=== PATIENT | male | born 1940 | race Caucasian/White ===

== ENCOUNTER 2018-10-23 05:10 | Observation (INO) | payer MEDICARE, BC ==
[2018-10-23 06:13] LABS: Anion Gap 11 mmol/L (10-20); BUN (Urea Nitrogen) 18 mg/dL (8.4-25.7); Calc. Creatinine Clearance 0 mL/min (70-130); Carbon Dioxide 23 mmol/L (23-31); Chloride 109 mmol/L (98-107); Estimated GFR-MDRD 57; Glucose 138 mg/dL (83-110); Potassium 4.2 mmol/L (3.5-5.1); Sodium 139 mmol/L (136-145)
[2018-10-23 06:20] LABS: Bilirubin Negative (Negative); Blood, Urine Large (Negative); Glucose, Urine (Dipstick) Negative (Negative); Leukocyte Trace (Negative); Nitrite Positive (Negative); pH, Urine 6.5 (5.0-9.0)
[2018-10-23 06:26] LABS: Clarity Turbid (Clear)
[2018-10-23 06:35] LABS: Specific Gravity, Urine 1.022 (1.002-1.036)
[2018-10-23 06:37] LABS: Bacteria/HPF 1+ HPF (None Seen); Hyaline Casts/LPF NONE SEEN LPF (0-3 Hyaline); RBC/HPF GREATER THAN 50-TNTC HPF (0-3); Squamous Epithelial 0-3 HPF (0-3)
[2018-10-23 10:36] LABS: #Basophils 0.1 thou/uL (0.0-0.2); #Eosinphils 0.3 thou/uL (0.0-0.7); #Lymphocytes 2.7 thou/uL (1.20-3.40); #Monocytes 0.7 thou/uL (0.11-0.59); #Neutrophils 5.4 thou/uL (1.40-6.50); %Basophils 0.9 % (0.0-1.0); %Eosinophils 3.5 % (0.0-10.0); %Lymphocytes 29.3 % (21.0-51.0); %Monocytes 7.7 % (0.0-10.0); %Neutrophils 58.6 % (42.0-75.0); Hemoglobin 13.6 g/dL (14.0-18.0); Mean Corpuscular HGB CONC 33.8 g/dL (32.0-36.0); Mean Corpuscular Volume 91.5 fL (78.0-98.0); Mean Platelet Volume 8.1 fL (7.4-10.4); Platelet Count 222 thou/uL (130-400); RBC Distribution Width 12.1 % (11.5-14.5); Red Blood Cell (RBC) Count 4.41 mill/uL (4.70-6.10); White Blood Cell (WBC) Count 9.3 thou/uL (4.8-10.8)
[2018-10-23] MEDS ORDERED: Zolpidem Tartrate 5 MG TAB PO PRN (10:45)
[2018-10-23] MEDS ORDERED: Bisacodyl 10 MG SUPP PR PRN (10:45)
[2018-10-23] MEDS ORDERED: Cepastat Lozenges 1 LOZ PO PRN (10:45)
[2018-10-23] MEDS ORDERED: Diabetic Tussin 200 MG/10 ML UDCUP PO PRN (10:45)
[2018-10-23] MEDS ORDERED: Acetaminophen 325 MG TAB PO PRN (10:45)
[2018-10-23] MEDS ORDERED: Loratadine 10 MG TAB PO PRN (10:45)
[2018-10-23] MEDS ORDERED: Artificial Tears 18 DROP/0.9 ML EA EYE PRN (10:45)
[2018-10-23] MEDS ORDERED: Bisacodyl 5 MG TAB PO PRN (10:45)
[2018-10-23] MEDS ORDERED: Senokot S 8.6-50 MG TAB PO PRN (10:45)
[2018-10-23] MEDS ORDERED: Dextrose 50% Abboject 50 ML SYRINGE SLOW IVP PRN (10:45)
[2018-10-23] MEDS ORDERED: Loperamide HCl 2 MG CAP PO PRN (10:45)
[2018-10-23] MEDS ORDERED: Ondansetron ODT 4 MG TAB PO PRN (10:45)
[2018-10-23] MEDS ORDERED: HumaLOG 300 UNITS/3 ML VIAL SC PRN ×2 (10:45)
[2018-10-23] MEDS ORDERED: Dextrose 5% in Water 1,000 ML IV PRN (10:45)
[2018-10-23] MEDS ORDERED: Sodium Chloride 0.65% Nasal 44 ML BOT EA NARE PRN (10:45)
[2018-10-23] MEDS ORDERED: cefTRIAXone\\ROCEPHIN 1 GM in Sodium Chloride 0.9% 100 ML IVPB SCH (10:45)
[2018-10-23] MEDS ORDERED: Eucerin (Mineral Oil/Petrolatum,White) 30 gm Jar TOP PRN (10:45)
[2018-10-23] MEDS ORDERED: Nitroglycerin 0.4 MG TAB (25 Tab Bottle) SL PRN (10:45)
[2018-10-23] MEDS ORDERED: HYDROcodone/Acetaminophen 5/325 mg Tablet PO PRN (10:45)
[2018-10-23] MEDS ORDERED: Ondansetron PF 4 MG/2 ML Vial IVP PRN (10:45)
[2018-10-23] MEDS ORDERED: Calcium Carbonate 500 MG ChewTAB PO PRN (10:45)
[2018-10-23 10:57] VITALS: BMI 31.1
--- NOTE | 2018-10-23 11:12 | HP ---
PRIMARY CARE PHYSICIAN: Amilcar Cano MD REASON FOR ADMISSION: Gross hematuria. HISTORY OF PRESENT ILLNESS: A 78-year-old male who has remote history of benign enlargement of prostate. He had some TURP done by Dr. Mendez 14 years ago. Since then, he had no problem. He presented to [facility] for gross hematuria, which started yesterday along with clots in the urine. He did not have any retention. He was having grossly bloody urine, which was painless. He was feeling cramps in his suprapubic area. He had Martinez catheter placed at [facility], which was draining gross blood. Subsequently, this patient was transferred to our hospital for higher level of care. Urology was consulted in the emergency room. Urology already saw this patient and they are planning to do cystoscopy later on today. He is getting bladder irrigation. He still has gross hematuria. The patient denies any chest pain or palpitation. He denies any smoking. He denies any previous history of hesitancy, frequency, retention, or hematuria. He denies any weight loss. He does have chronic low back pain. He denies any fever or chills. He denies any cough, chest pain, palpitation, or shortness of breath. PAST MEDICAL HISTORY: Coronary artery disease, required CABG; benign enlargement of prostate, required TURP; hypertension; and diabetes type 2. PAST SURGICAL HISTORY: CABG x3, right shoulder surgery, TURP, tonsillectomy, and lumbar laminectomy. PAST PSYCHIATRIC HISTORY: Reviewed and negative. SOCIAL HISTORY: The patient is a former smoker. He quit smoking more than 10 years ago. He denies any alcohol or other illicit drug abuse. FAMILY HISTORY: No strong family history of premature coronary artery disease, stroke, or cancer. ALLERGIES: NO KNOWN DRUG ALLERGIES. CURRENT HOME MEDICATIONS: Aspirin 81 mg p.o. daily and lisinopril 20 mg twice daily. EMERGENCY ROOM COURSE: Reviewed. REVIEW OF SYSTEMS: CONSTITUTIONAL: Negative for weight loss or gain, ability to conduct usual activities. SKIN: Negative for rash, itching. EYES: Negative for double vision, pain. ENT/MOUTH: Negative for nose bleeding, neck stiffness, pain, tenderness. CARDIOVASCULAR: Negative for palpitations, dyspnea on exertion, orthopnea. RESPIRATORY: Negative for shortness of breath, wheezing, cough, hemoptysis, fever or night sweats. GASTROINTESTINAL: Negative for poor appetite, abdominal pain, heartburn, nausea, vomiting, constipation, or diarrhea. GENITOURINARY: Negative for urgency, frequency, dysuria, nocturia. MUSCULOSKELETAL: Negative for pain, swelling. NEUROLOGIC/PSYCHIATRIC: Negative for anxiety, depression. ALLERGY/IMMUNOLOGIC: Negative for skin rash, bleeding tendency. See my HPI for pertinent positives and negatives. All other review of systems reviewed and negative except as mentioned in HPI. PHYSICAL EXAMINATION: VITAL SIGNS: Currently; temperature 97.7, pulse 74, blood pressure 173/60, respiratory rate 16, and saturation 98% on room air. Weight 91.6 kg. GENERAL: The patient is currently alert and oriented x3. No acute distress. HEENT: Head, normocephalic and atraumatic. Eyes, pupils are round and reactive to light. Extraocular muscle intact. ENT, oropharynx within normal limits. Moist mucous membrane. No oral lesion. No pharyngeal erythema. No exudate. NECK: Supple. No JVD. No thyromegaly. No carotid bruit. No jugular venous distention. LUNGS: Clear to auscultation without any rhonchi or rales. CARDIAC: S1 and S2 regular. No murmur. No gallop. No rub. ABDOMEN: Soft. Bowel sounds present. Nontender. Mild suprapubic discomfort noted. No peritoneal sign. No guarding. No rigidity. No rebound. BACK: Unremarkable. No CVA tenderness. No point tenderness. EXTREMITIES: Upper extremities; passive movement of all joints is normal. Lower extremity, no edema. Good distal pulsation. SKIN: No skin rash. HEMATOLOGICAL SYSTEM: No lymphadenopathy. NEUROLOGIC: Nonfocal examination. SIGNIFICANT LABORATORY DATA: CBC; WBC 7.8, hemoglobin 13.4, and platelet 199. INR 1.0. BMP; sodium 141, potassium 3.9, chloride 110, carbon dioxide 23, BUN 16, creatinine 1.24, glucose 165, and calcium 8.7. LFT; AST 12, ALT 11, alkaline phosphatase 64, and albumin 4.0. Urinalysis consistent with gross hematuria, nitrite positive. ASSESSMENT AND PLAN: Impression: 1. Gross hematuria. Differential diagnosis is bladder tumor/cystitis/urinary tract infection/prostate pathology. At this point, based on acute painless gross massive hematuria, suspected for a bladder tumor. Urology already saw this patient and has planned for cystoscopy. We will continue continuous bladder irrigation. We will start empiric Rocephin 1 g q.24 hours. We will send urine culture. We will monitor H and H now and again tomorrow. Currently, the patient is hemodynamically stable. I spoke with Dr. Amaya. 2. History of benign enlargement of prostate. We will start Flomax 0.4 mg p.o. daily. 3. Hypertension. We will continue lisinopril 20 mg p.o. b.i.d. as per home dosage. 4. Diabetes type 2. Currently, the patient is not on any specific medication. We will continue with insulin as per sliding scale per protocol. We will check hemoglobin A1c tomorrow. 5. Coronary artery disease with history of coronary artery bypass grafting. We will hold on aspirin therapy because of gross hematuria. We will continue Toprol-XL 25 mg p.o. daily as per his previous home medicine. 6. Deep venous thrombosis prophylaxis, not needed, because we are expecting discharge in 24 to 48 hours. 7. Gastrointestinal prophylaxis. Pepcid 20 mg p.o. b.i.d. CODE STATUS: The patient is full code. The patient does not have any surrogate decision maker. DISPOSITION PLAN: Discussed with the patient in detail. Job ID: [id number]
[2018-10-23] MEDS ORDERED: cefTRIAXone\\ROCEPHIN 1 GM VIAL ONE (11:18)
[2018-10-23] MEDS ORDERED: Sodium Chloride 0.9% 100 ML ONE (11:18)
[2018-10-23] MEDS ORDERED: Ondansetron PF 4 MG/2 ML Vial ONE (12:35)
[2018-10-23] MEDS ORDERED: Metoclopramide HCl 10 MG/2 ML VIAL ONE (12:35)
[2018-10-23] MEDS ORDERED: PROPOFOL 200 MG/20 ML VIAL ONE (12:35)
[2018-10-23] MEDS ORDERED: PHENYLEPHRINE-NS 100 MCG/ML 10 ML SYRINGE ONE (12:35)
[2018-10-23] MEDS ORDERED: Lidocaine 1% PF 5 ML VIAL ONE (12:35)
[2018-10-23] MEDS ORDERED: Iothalamate Meglumine 60% 50 ML VIAL FS ONE (13:01)
[2018-10-23] MEDS ORDERED: Fentanyl 100 MCG/2 ML VIAL ONE ×2 (13:03→13:05)
[2018-10-23] MEDS ORDERED: PACU-Morphine 4MG/ML VIAL SLOW IVP PRN (13:50)
[2018-10-23] MEDS ORDERED: Meperidine HCl/PF 25 MG/ML VIAL SLOW IVP PRN (13:50)
[2018-10-23] MEDS ORDERED: Promethazine HCl 25 MG/ML VIAL IM PRN ×2 (13:50→14:23)
[2018-10-23] MEDS ORDERED: Promethazine HCl 25 MG/ML VIAL SLOW IVP PRN ×2 (13:50→14:23)
[2018-10-23] MEDS ORDERED: Ondansetron HCl/PF 4 MG/2 ML Vial IVP PRN (14:23)
[2018-10-23] MEDS: Sodium Chloride 0.9% 1,000 ML IV SCH ×2 (15:26→20:12)
--- NOTE | 2018-10-23 16:50 | CON ---
DATE OF CONSULTATION: 10/23/2018 CHIEF COMPLAINT: Gross hematuria, clot retention. HISTORY: Mr. Diez is a 78-year-old gentleman, whose prior urologic history includes TURP over [address] Mendez. He developed gross hematuria yesterday. By the evening, he was concerned he would not be able to urinate, so he presented to [facility]. A Martinez catheter had been placed and bloody urine was drained. He was then transferred to [facility] in [place]. Hand irrigation in the emergency room was performed, but cannot be deemed clot-free. The patient has no prior urologic history other than TURP. He does state that his baseline voiding symptoms include some urinary frequency and occasional feeling of incomplete bladder emptying, but it is not particularly bothered by these changes. He does not take any urologic medication. PAST MEDICAL HISTORY: Coronary artery disease, hypertension, and [id number] diabetes. CURRENT MEDICATIONS: 1. Aspirin 81 mg once a day. 2. Lisinopril 10 mg one p.o. b.i.d. ALLERGIES: NO KNOWN DRUG ALLERGIES. PAST SURGICAL HISTORY: TURP and coronary artery bypass graft. REVIEW OF SYSTEMS: RESPIRATORY: No shortness of breath. CARDIOVASCULAR: No chest pain or palpitation. GASTROINTESTINAL: No chronic constipation or diarrhea. GENITOURINARY: Please see history of present illness. NEUROLOGIC: No signs or symptoms or stroke. PHYSICAL EXAMINATION: GENERAL: Awake and alert. He is in no distress. Appears younger than stated age. VITAL SIGNS: Temperature 98.6, blood pressure 138/82, pulse 82, and respiratory rate 16. HEENT: Normocephalic and atraumatic. NECK: Supple. No masses. CHEST: Clear to auscultation. CARDIOVASCULAR: Regular rate and rhythm. ABDOMEN: Soft and nontender. No palpable masses. Liver and spleen, not palpable. No abdominal tenderness noted. : Penis circumcised. Urethral meatus appears normal. Scrotum, no lesions. Martinez catheter is placed and hand irrigated. Clots were obtained, but it could not be deemed a clot-free. IMPRESSION: Gross hematuria of unclear etiology. He will need cystoscopic evaluation to deem him clot-free. Evaluation at that time will also be performed to rule out bladder tumor. He will eventually need upper urinary tract imaging to assess the upper urinary tract for source of bleeding. PLAN: Cystoscopy, clot evacuation, and possible TURBT. Job ID: [id number]
--- NOTE | 2018-10-23 20:03 | OP ---
DATE OF PROCEDURE: 10/23/2018 PREOPERATIVE DIAGNOSES: Gross hematuria, clot retention. POSTOPERATIVE DIAGNOSES: Gross hematuria, clot retention. PROCEDURES PERFORMED: Cystoscopy, clot evacuation, and fulguration of prostate. ANESTHESIA: General. INDICATIONS: Mr. Diez is a 78-year-old gentleman with a history of TURP over 10 years ago. He developed urinary retention from blood clots today. The catheter could not be sufficiently cleared of clot by hand irrigation. He was brought to the operating room for further management. DESCRIPTION OF PROCEDURE: The patient was given general anesthesia and IV antibiotics. He was sterilely prepped and draped in the lithotomy position. A cystoscope was passed into the bladder and bladder examined in its entirety. There were no obvious tumors noted in the bladder. The right ureteral orifice appeared normal. Left ureteral orifice could never really be seen clearly. Efflux in the right ureteral orifice was also normal. There was some bleeding from the prostatic fossa. These areas were fulgurated. At the termination of the surgery, there was no active bleeding noted. 3-way Martinez catheter was placed and continuous bladder irrigation was initiated in the operating room. When we left the operating room, the urine was clear. PLAN: 1. Evaluation of upper urinary tract/CT scan. 2. Continuous bladder irrigation today. 3. Discontinue continuous bladder irrigation when urine clear off irrigation. Job ID: [id number]
[2018-10-23] MEDS: Famotidine 20 MG TAB PO SCH (20:05)
[2018-10-23] MEDS: Lisinopril 20 MG TAB PO SCH (20:05)
[2018-10-23] MEDS: hydrALAZINE 20 MG/ML VIAL SLOW IVP PRN (23:20)
[2018-10-24 04:46] LABS: #Basophils 0.1 thou/uL (0.0-0.2); #Eosinphils 0.2 thou/uL (0.0-0.7); #Lymphocytes 2.2 thou/uL (1.20-3.40); #Neutrophils 6.9 thou/uL (1.40-6.50); %Eosinophils 2.2 % (0.0-10.0); %Lymphocytes 20.8 % (21.0-51.0); %Monocytes 9.3 % (0.0-10.0); %Neutrophils 66.6 % (42.0-75.0); Hemoglobin 13.3 g/dL (14.0-18.0); Mean Corpuscular HGB CONC 34.3 g/dL (32.0-36.0); Mean Corpuscular Hemoglobin 30.9 pg (27.0-31.0); Mean Corpuscular Volume 90.1 fL (78.0-98.0); Mean Platelet Volume 7.7 fL (7.4-10.4); Platelet Count 213 thou/uL (130-400); Red Blood Cell (RBC) Count 4.31 mill/uL (4.70-6.10); White Blood Cell (WBC) Count 10.4 thou/uL (4.8-10.8)
[2018-10-24] MEDS: hydrALAZINE 20 MG/ML VIAL SLOW IVP PRN (04:53)
[2018-10-24 04:59] LABS: Hemoglobin A1c 5.7 % (4.0-6.0)
[2018-10-24 05:03] LABS: ALT (SGPT) 7 U/L (8-55); AST (SGOT) 12 U/L (5-34); Albumin 3.6 g/dL (3.4-4.8); Alkaline Phosphatase 69 U/L (40-150); Anion Gap 10 mmol/L (10-20); BUN (Urea Nitrogen) 11 mg/dL (8.4-25.7); Bilirubin, Total 0.6 mg/dL (0.2-1.2); Calc. Creatinine Clearance 79 mL/min (70-130); Calcium 8.6 mg/dL (7.8-10.44); Carbon Dioxide 23 mmol/L (23-31); Chloride 110 mmol/L (98-107); Estimated GFR-MDRD 68; Globulin 2.5 g/dL (2.4-3.5); Glucose 124 mg/dL (83-110); Potassium 4.1 mmol/L (3.5-5.1); Protein, Total 6.1 g/dL (5.8-8.1); Sodium 139 mmol/L (136-145)
[2018-10-24] MEDS: Famotidine 20 MG TAB PO SCH (08:00)
[2018-10-24] MEDS: Sodium Chloride 0.9% 1,000 ML IV SCH (08:00)
[2018-10-24] MEDS: Lisinopril 20 MG TAB PO SCH (08:00)
[2018-10-24] MEDS ORDERED: Tamsulosin HCl 0.4 MG CAP PO SCH (09:00)
--- NOTE | 2018-10-24 09:31 | PDOC.PN ---
- Subjective Encounter Start Date: 10/24/18 Encounter Start Time: 07:20 -: old records requested/rev Patient seen and examined. No new complaints. No overnight events - Objective Resuscitation Status - Order Detail: 10/23/18 09:51 Resuscitation Status Routine Resuscitation Status: FULL: Full Resuscitation MAR Reviewed: Yes Vital Signs & Weight: Vital Signs (12 hours) Temp Pulse Resp BP Pulse Ox 10/24/18 07:18 97.9 F 83 18 184/72 H 97 10/24/18 04:53 93 10/24/18 04:49 98.9 F 93 18 175/74 H 97 10/24/18 00:27 170/74 H 10/23/18 23:04 98.4 F 71 14 186/83 H 99 Weight Weight 211 lb I&O: 10/23/18 10/24/18 10/25/18 06:59 06:59 06:59 Intake Total 37805 200 Output Total 46804 1000 Balance 1050 -800 Result Diagrams: 10/24/18 04:17 10/24/18 04:17 Additional Labs: Accuchecks 10/23/18 10/23/18 20:30 16:29 POC Glucose 188 H 130 H Phys Exam - Physical Examination Constitutional: NAD HEENT: PERRLA, moist MMs, sclera anicteric Neck: no JVD, supple Respiratory: no wheezing, no rales, no rhonchi Cardiovascular: RRR, no significant murmur, no rub Gastrointestinal: soft, non-tender, no distention, positive bowel sounds Musculoskeletal: no edema, pulses present Neurological: non-focal, normal sensation, moves all 4 limbs Lymphatic: no nodes Psychiatric: normal affect, A&O x 3 Skin: no rash, normal turgor Dx/Plan (1) Gross hematuria Status: Acute (2) BPH (benign prostatic hyperplasia) Code(s): N40.0 - BENIGN PROSTATIC HYPERPLASIA WITHOUT LOWER URINRY TRACT SYMP Status: Chronic (3) Hypertension Code(s): I10 - ESSENTIAL (PRIMARY) HYPERTENSION Status: Chronic (4) CAD (coronary artery disease) Code(s): I25.10 - ATHSCL HEART DISEASE OF [place] CORONARY ARTERY W/O ANG PCTRS Status: Chronic (5) Obesity (BMI 30.0-34.9) Code(s): E66.9 - OBESITY, UNSPECIFIED Status: Chronic - Plan cont current plan of care * CT stone protolol * will consider discharge later today if urology ok * medication reviewed as below * symptomatic treatment. Review of Systems - Review of Systems ENT: negative: Ear Pain, Ear Discharge, Nose Pain, Nose Discharge, Nose Congestion, Mouth Pain, Mouth Swelling, Throat Pain, Throat Swelling, Other Respiratory: negative: Cough, Dry, Shortness of Breath, Hemoptysis, SOB with Excertion, Pleuritic Pain, Sputum, Wheezing Cardiovascular: negative: chest pain, palpitations, orthopnea, paroxysmal nocturnal dyspnea, edema, light headedness, other Gastrointestinal: negative: Nausea, Vomiting, Abdominal Pain, Diarrhea, Constipation, Melena, Hematochezia, Other Genitourinary: negative: Dysuria, Frequency, Incontinence, Hematuria, Retention , Other Musculoskeletal: negative: Neck Pain, Shoulder Pain, Arm Pain, Back Pain, Hand Pain, Leg Pain, Foot Pain, Other Skin: negative: Rash, Lesions, Kiko, Bruising, Other - Medications/Allergies Allergies/Adverse Reactions: Allergies Allergy/AdvReac Type Severity Reaction Status Date / Time No Known Allergies Allergy Verified 10/23/18 10:51 Medications: Current Medications Acetaminophen (Tylenol) 650 mg PO Q4H PRN PRN Reason: Headache/Fever/Mild Pain (1-3) Hydrocodone Bitart/Acetaminophen ([place] 5/325) 1 tab PO Q4H PRN PRN Reason: Moderate Pain (4-6) Artificial Tears (Tears Naturale) 2 drop EA EYE PRN PRN PRN Reason: Dry Eyes Bisacodyl (Dulcolax) 10 mg PO DAILYPRN PRN PRN Reason: Constipation Bisacodyl (Dulcolax) 10 mg NV DAILYPRN PRN PRN Reason: Constipation Calcium Carbonate (Tums) 1,000 mg PO Q4H PRN PRN Reason: Heartburn or Indigestion Dextrose/Water (Dextrose 50%) 25 gm SLOW IVP PRN PRN PRN Reason: Hypoglycemia Famotidine (Pepcid) 20 mg PO BID BHARAT Last Admin: 10/24/18 08:00 Dose: 20 mg Glucagon (Glucagon) 1 mg IM PRN PRN PRN Reason: Hypoglycemia Guaifenesin (Robitussin Sf) 200 mg PO Q4H PRN PRN Reason: Cough Hydralazine HCl (Apresoline) 10 mg SLOW IVP Q4H PRN PRN Reason: SBP > 180 and HR < 70 Last Admin: 10/24/18 04:53 Dose: 10 mg Dextrose/Water (D5w) 1,000 mls @ 0 mls/hr IV .Q0M PRN PRN Reason: Hypoglycemia Sodium Chloride (Normal Saline 0.9%) 1,000 mls @ 75 mls/hr IV .[id number] [facility] Last Admin: 10/24/18 08:00 Dose: 1,000 mls Ceftriaxone Sodium 1 gm/ (Sodium Chloride) 100 mls @ 200 mls/hr IVPB 1300 [facility] Insulin Human Lispro (Humalog) 0 units SC .MODERATE SLIDING SC PRN PRN Reason: Moderate Correctional Scale Insulin Human Lispro (Humalog) 0 units SC .BEDTIME SLIDING SC PRN PRN Reason: Bedtime Correctional Scale Lisinopril (Zestril) 20 mg PO BID [facility] Last Admin: 10/24/18 08:00 Dose: 20 mg Loperamide HCl (Imodium) 2 mg PO PRN PRN PRN Reason: Diarrhea/Loose Stools Loratadine (Claritin) 10 mg PO DAILYPRN PRN PRN Reason: Sinus Symptoms Metoprolol Succinate (Toprol Xl) 25 mg PO DAILY [facility] Last Admin: 10/24/18 08:00 Dose: 25 mg Mineral Oil/White Petrolatum (Eucerin Cream) 0 gm TOP BIDPRN PRN PRN Reason: Dry Skin Nitroglycerin (Nitrostat) 0.4 mg SL Q5MIN PRN PRN Reason: Chest Pain Ondansetron HCl (Zofran Odt) 4 mg PO Q6H PRN PRN Reason: Nausea/Vomiting Ondansetron HCl (Zofran) 4 mg IVP Q6H PRN PRN Reason: Nausea/Vomiting Senna/Docusate Sodium (Senokot S) 2 tab PO BID PRN PRN Reason: Constipation Sodium Chloride ([place] Nasal Lilly 0.65%) 0 ml EA NARE QIDPRN PRN PRN Reason: Nasal Congestion Tamsulosin HCl (Flomax) 0.4 mg PO DAILY [facility] Last Admin: 10/24/18 08:00 Dose: 0.4 mg Throat Lozenges (Cepastat Lozenges) 1 carla PO Q2H PRN PRN Reason: Sore Throat Zolpidem Tartrate (Ambien) 5 mg PO HSPRN PRN PRN Reason: Insomnia
--- NOTE | 2018-10-24 10:22 | CT ---
CT ABDOMEN AND PELVIS WITHUOT CONTRAST STONE PROTOCOL: HISTORY: Gross hematuria. COMPARISON: CT 2009. FINDINGS: Lung bases are clear. No pericardial effusion. There is mild inflammatory stranding along the left distal ureter. There is also abnormal inflammato ry stranding in the space of Retzius. The prostate is markedly enlarged. The urinary bladder wall i s abnormally thickened. There is mild dilatation of the left ureter which is markedly tortuous. Mild left-sided hydronephrosis. No renal calculi nor ureteral calculi are appreciated. There is a fat and lymph node containing left-sided direct inguinal hernia. There is also a small ri ght-sided fat-containing direct inguinal hernia. No dilated loops of large or small bowel. There is normal appearance of the appendix. Adrenal glands are unremarkable. The spleen is unremarkable as well as the pancreas. IMPRESSION: 1. Mild left side hydronephrosis with periureteral stranding, especially the pelvic brim. There is also extensive inflammatory stranding in the space of Retzius with wall thickening of the urinary silvio dder. Given the markedly enlarged prostate, there is concern for chronic bladder outlet obstruction and underlying cystitis and left-sided pyelonephritis. The left-sided ureteral stranding and enlarge ment is concerning for bladder outlet obstruction. Follow up CT urogram may be beneficial. 2. Normal appendix. 3. No renal calculi. POS: [facility]
[2018-10-24 11:47] VITALS: BP 175/75; TEMP 97.8
[2018-10-24] MEDS ORDERED: cefTRIAXone\\ROCEPHIN 1 GM in Sodium Chloride 0.9% 100 ML IVPB SCH (13:00)
--- NOTE | 2018-10-24 13:18 | DIS ---
DATE OF ADMISSION: 10/23/2018 DATE OF DISCHARGE: 10/24/2018 PRIMARY CARE PHYSICIAN: Amilcar Cano MD DISCHARGE DISPOSITION: Home. PRIMARY DISCHARGE DIAGNOSES: 1. Gross hematuria. 2. Mild left-sided hydronephrosis. 3. Markedly enlarged prostate gland. 4. Chronic bladder outlet obstruction. 5. Cystitis and left-sided pyelonephritis. SECONDARY DISCHARGE DIAGNOSES: 1. Hypertension. 2. Coronary artery disease. 3. Obesity with body mass index 31. PRIMARY PROCEDURE/OPERATION: Cystoscopy was performed by Dr. Amaya and found with enlarged prostate. RADIOLOGICAL INVESTIGATION: Abdomen and pelvis CT scan showed mild left-sided hydronephrosis, periureteral stranding, pyelonephritis, cystitis, prostate enlargement, chronic bladder outlet obstruction. SIGNIFICANT LABS: WBC 10.4, hemoglobin 13.3, platelet 213. Sodium 139, potassium 4.1, BUN 11, creatinine 1.06, calcium 8.6. Hemoglobin A1c 5.7. LFT normal. Urinalysis suggestive of UTI. Urine culture negative. DISCHARGE MEDICATIONS: 1. Cipro 500 mg p.o. b.i.d. 2. Flomax 0.4 mg p.o. daily. 3. Lisinopril 20 mg p.o. b.i.d. CONTRAINDICATION: None. CODE STATUS: Full code. INPATIENT RECOVERER: Dr. Amaya was consulted while in hospital. TEST RESULTS PENDING ON DISCHARGE: None. ALLERGIES: NO KNOWN DRUG ALLERGIES. DISCHARGE PLAN: Post hospital, the patient will follow up with primary care physician and urologist as instructed. HOSPITAL COURSE: A 78-year-old male, who has previous history of benign enlargement of prostate, who was admitted for gross hematuria. He had acute onset of painless gross hematuria and that is why he went to [facility], and subsequently, he was transferred to our hospital. Urology was consulted from ER. The patient was started on continuous bladder irrigation. He underwent cystoscopy and they did not find anything. We did CT abdomen and pelvis, stone protocol, which showed mild left-sided hydronephrosis, periureteral stranding and left-sided pyelonephritis and cystitis with chronic bladder outlet obstruction. The patient's bladder irrigation resolved, gross hematuria. Subsequently, we clamped with bladder irrigation and Urology recommended to leave Martinez catheter in. Upon discharge, we prescribed Cipro for prophylaxis and for treatment to prevent worse infection. I have seen and examined the patient at bedside today. Overall, the patient is medically stable. If Urology cleared him for discharge, then we will discharge him home later on today. While in the hospital, we gave him Rocephin and his culture was negative by the time of dictation. Job ID: [id number]
--- NOTE | 2018-10-29 13:26 | EKG ---
Test Reason : Blood Pressure : / mmHG Vent. Rate : 080 BPM Atrial Rate : 080 BPM P-R Int : 156 ms QRS Dur : 088 ms QT Int : 368 ms P-R-T Axes : 055 -01 036 degrees QTc Int : 424 ms Normal sinus rhythm Septal infarct , age undetermined Abnormal ECG Confirmed by HUMA RICHARDS DO ([id number]), movie editor FRANK ALICIA ([id number]) on 10/29/2018 1:25:57 PM Referred By: Confirmed By:HUMA RICHARDS DO
== END 2018-10-24 15:40 | disposition home or self-care (01) ==
LOC: ERS 05:10 → 2SW 09:41
PROVIDERS: ADMIT Internal Medicine; ATTEND Internal Medicine
PROC: 0W3R8ZZ Control Bleeding in Genitourinary Tract, Via Natural or Artificial Opening Endoscopic (ICD-10-PCS; principal; 2018-10-23)
DX: R31.0 Gross hematuria (principal); N40.1 Benign prostatic hyperplasia with lower urinary tract symptoms; R33.8 Other retention of urine; N13.6 Pyonephrosis; N32.0 Bladder-neck obstruction; N30.91 Cystitis, unspecified with hematuria; I25.10 Atherosclerotic heart disease of native coronary artery without angina pectoris; I10 Essential (primary) hypertension; E11.9 Type 2 diabetes mellitus without complications; G89.29 Other chronic pain; M54.5 Low back pain; E66.9 Obesity, unspecified; Z68.31 Body mass index [BMI] 31.0-31.9, adult; Z87.891 Personal history of nicotine dependence; Z79.82 Long term (current) use of aspirin; Z79.899 Other long term (current) drug therapy; Z95.1 Presence of aortocoronary bypass graft
CPT/HCPCS: 51703; 53899; 74176; 80048; 80053; 81003; 82962 ×2; 83036; 85025 ×2; 87086; 93005; 96361 ×2; 96374; 96376; 99284; G0378 ×2; 36415; 36416; J0131; J0360; J0696; J2001; J2405; J2704; J2765; J3010; J7050; Q9961

== ENCOUNTER 2021-08-06 23:27 | Inpatient (IN) | payer MEDICARE, BC ==
[2021-08-07] MEDS ORDERED: HYDROcodone/Acetaminophen 7.5/325 mg Tablet PO PRN (00:34)
[2021-08-07] MEDS ORDERED: HYDROcodone/Acetaminophen 5/325 mg Tablet PO PRN (00:34)
[2021-08-07] MEDS ORDERED: Ondansetron PF 4 MG/2 ML Vial IVP PRN (00:34)
[2021-08-07] MEDS ORDERED: Acetaminophen 325 MG TAB PO PRN (00:34)
[2021-08-07 00:46] VITALS: BMI 31.7
[2021-08-07] MEDS ORDERED: HumaLOG 300 UNITS/3 ML VIAL SC PRN (00:59)
[2021-08-07] MEDS ORDERED: Dextrose 5% in Water 1,000 ML IV PRN (00:59)
[2021-08-07] MEDS ORDERED: Dextrose 50% Abboject 50 ML SYRINGE SLOW IVP PRN (00:59)
[2021-08-07] MEDS ORDERED: Albuterol Sulfate 1.25 MG/3 ML NEB INH PRN (01:02)
[2021-08-07 01:45] LABS: Troponin I 0.078 ng/mL (< 0.028)
[2021-08-07 06:24] LABS: Hemoglobin A1c 6.5 % (4.0-6.0)
[2021-08-07 06:45] LABS: ALT (SGPT) 16 U/L (8-55); AST (SGOT) 35 U/L (5-34); Albumin 2.9 g/dL (3.4-4.8); Alkaline Phosphatase 65 U/L (40-110); Anion Gap 12 mmol/L (10-20); BUN (Urea Nitrogen) 21 mg/dL (8.4-25.7); Bilirubin, Total 0.5 mg/dL (0.2-1.2); Calc. Creatinine Clearance 60 mL/min (70-130); Calcium 7.6 mg/dL (7.8-10.44); Carbon Dioxide 23 mmol/L (23-31); Cardiac Risk 5.9 (Less than 4.5); Chloride 99 mmol/L (98-107); Cholesterol 130 mg/dl (< 200 Desired); Globulin 2.4 g/dL (2.4-3.5); Glucose 113 mg/dL (83-110); HDL Cholesterol 22 mg/dL (>60 Neg Risk); LDL Cholesterol, Calculated 83 mg/dL; Potassium 3.7 mmol/L (3.5-5.1); Protein, Total 5.3 g/dL (5.8-8.1); Sodium 130 mmol/L (136-145); Triglycerides 127 mg/dL (Less than 150)
[2021-08-07] MEDS: Zinc Sulfate 220 MG CAP PO SCH (08:55)
[2021-08-07] MEDS: Ascorbic Acid 500 mg Chewable Tablet PO SCH (08:55)
[2021-08-07] MEDS: Aspirin 325 mg Enteric Coated Tablet PO SCH (08:55)
[2021-08-07] MEDS: Cholecalciferol (Vitamin D3) 400 UNITS TAB PO SCH (08:55)
[2021-08-07] MEDS: Enoxaparin Sodium 40 MG/0.4 ML SYRINGE SC SCH (08:57)
[2021-08-07] MEDS ORDERED: Dexamethasone 10 MG/ML VIAL SLOW IVP SCH (09:00)
[2021-08-07] MEDS ORDERED: Amlodipine 10 MG TAB PO SCH (09:00)
[2021-08-07] MEDS ORDERED: Lisinopril 20 MG TAB PO SCH (09:07)
[2021-08-07] MEDS: Dexamethasone 10 MG/ML VIAL SLOW IVP SCH (10:15)
[2021-08-07] MEDS: hydrALAZINE 20 MG/ML VIAL SLOW IVP PRN (12:39)
[2021-08-07] MEDS: HumaLOG 300 UNITS/3 ML VIAL SC PRN ×2 (12:42→18:25)
[2021-08-07] MEDS ORDERED: NIFEdipine XL 90 MG TAB PO SCH (14:45)
[2021-08-07] MEDS: Azithromycin 500 MG in Sodium Chloride 0.9% 250 ML 250 ML IVPB SCH (18:46)
[2021-08-07] MEDS: cefTRIAXone\\ROCEPHIN 2 GM in Sodium Chloride 0.9% 100 ML IVPB SCH (19:44)
[2021-08-07] MEDS: Lisinopril 20 MG TAB PO SCH (19:44)
[2021-08-08 05:25] LABS: #Lymphocytes 0.8 thou/uL (1.20-3.40); #Monocytes 0.6 thou/uL (0.11-0.59); #Neutrophils 4.2 thou/uL (1.40-6.50); %Basophils 0.5 % (0.0-1.0); %Eosinophils 0.9 % (0.0-10.0); %Lymphocytes 14.3 % (21.0-51.0); %Monocytes 10.4 % (0.0-10.0); Hemoglobin 12.9 g/dL (14.0-18.0); Mean Corpuscular HGB CONC 33.3 g/dL (32.0-36.0); Mean Corpuscular Hemoglobin 29.9 pg (27.0-31.0); Mean Corpuscular Volume 89.9 fL (78.0-98.0); Platelet Count 200 thou/uL (130-400); RBC Distribution Width 11.7 % (11.5-14.5); Red Blood Cell (RBC) Count 4.31 mill/uL (4.70-6.10); White Blood Cell (WBC) Count 5.6 thou/uL (4.8-10.8)
[2021-08-08 05:47] LABS: Anion Gap 19 mmol/L (10-20); BUN (Urea Nitrogen) 42 mg/dL (8.4-25.7); Calc. Creatinine Clearance 30 mL/min (70-130); Calcium 7.6 mg/dL (7.8-10.44); Carbon Dioxide 15 mmol/L (23-31); Chloride 97 mmol/L (98-107); Glucose 287 mg/dL (83-110); Potassium 3.6 mmol/L (3.5-5.1); Sodium 127 mmol/L (136-145)
[2021-08-08] MEDS: HumaLOG 300 UNITS/3 ML VIAL SC PRN ×2 (06:06→13:00)
[2021-08-08] MEDS: Enoxaparin Sodium 40 MG/0.4 ML SYRINGE SC SCH (08:24)
[2021-08-08] MEDS: Senokot S 8.6-50 MG TAB PO SCH ×2 (08:25→22:16)
[2021-08-08] MEDS: Aspirin 325 mg Enteric Coated Tablet PO SCH (08:25)
[2021-08-08] MEDS: Tamsulosin HCl 0.4 MG CAP PO SCH (08:26)
[2021-08-08] MEDS: Lisinopril 20 MG TAB PO SCH (08:26)
[2021-08-08] MEDS: Zinc Sulfate 220 MG CAP PO SCH (08:29)
[2021-08-08] MEDS: Ascorbic Acid 500 mg Chewable Tablet PO SCH (08:30)
[2021-08-08] MEDS: Cholecalciferol (Vitamin D3) 400 UNITS TAB PO SCH (08:31)
[2021-08-08] MEDS: Dexamethasone 10 MG/ML VIAL SLOW IVP SCH (08:31)
[2021-08-08] MEDS ORDERED: NIFEdipine XL 90 MG TAB PO SCH (09:00)
[2021-08-08] MEDS: Sodium Chloride 0.9% 1,000 ML IV SCH (13:04)
[2021-08-08] MEDS ORDERED: HumaLOG 300 UNITS/3 ML VIAL SC PRN (15:14)
[2021-08-08] MEDS ORDERED: Dextrose 5% in Water 1,000 ML IV PRN (15:14)
[2021-08-08] MEDS ORDERED: Dextrose 50% Abboject 50 ML SYRINGE SLOW IVP PRN (15:14)
[2021-08-08] MEDS ORDERED: Lantus 1000 UNITS/10 ML VIAL SC SCH (15:30)
[2021-08-08] MEDS: Azithromycin 500 MG in Sodium Chloride 0.9% 250 ML 250 ML IVPB SCH (18:26)
[2021-08-08] MEDS: cefTRIAXone\\ROCEPHIN 2 GM in Sodium Chloride 0.9% 100 ML IVPB SCH (20:37)
[2021-08-08] MEDS: Melatonin 3 MG TAB PO PRN (20:39)
[2021-08-09 05:23] LABS: #Basophils 0.1 thou/uL (0.0-0.2); #Lymphocytes 1.4 thou/uL (1.20-3.40); #Monocytes 1.4 thou/uL (0.11-0.59); #Neutrophils 10.5 thou/uL (1.40-6.50); %Basophils 0.5 % (0.0-1.0); %Eosinophils 0.2 % (0.0-10.0); %Lymphocytes 10.8 % (21.0-51.0); %Monocytes 10.2 % (0.0-10.0); %Neutrophils 78.4 % (42.0-75.0); Mean Corpuscular HGB CONC 35.2 g/dL (32.0-36.0); Mean Corpuscular Hemoglobin 31.3 pg (27.0-31.0); Mean Corpuscular Volume 88.9 fL (78.0-98.0); Mean Platelet Volume 8.6 fL (7.4-10.4); Platelet Count 259 thou/uL (130-400); RBC Distribution Width 11.6 % (11.5-14.5); Red Blood Cell (RBC) Count 4.17 mill/uL (4.70-6.10); White Blood Cell (WBC) Count 13.3 thou/uL (4.8-10.8)
[2021-08-09 05:46] LABS: ALT (SGPT) 29 U/L (8-55); AST (SGOT) 48 U/L (5-34); Albumin 2.9 g/dL (3.4-4.8); Alkaline Phosphatase 67 U/L (40-110); Anion Gap 20 mmol/L (10-20); BUN (Urea Nitrogen) 57 mg/dL (8.4-25.7); Bilirubin, Total 0.4 mg/dL (0.2-1.2); Calc. Creatinine Clearance 25 mL/min (70-130); Calcium 7.6 mg/dL (7.8-10.44); Carbon Dioxide 14 mmol/L (23-31); Chloride 95 mmol/L (98-107); Globulin 2.6 g/dL (2.4-3.5); Glucose 214 mg/dL (83-110); Potassium 3.5 mmol/L (3.5-5.1); Protein, Total 5.5 g/dL (5.8-8.1); Sodium 125 mmol/L (136-145)
[2021-08-09] MEDS ORDERED: Lantus 1000 UNITS/10 ML VIAL SC SCH (09:00)
[2021-08-09] MEDS: Ascorbic Acid 500 mg Chewable Tablet PO SCH (09:35)
[2021-08-09] MEDS: Benzonatate 100 MG CAP PO PRN (09:35)
[2021-08-09] MEDS: Tamsulosin HCl 0.4 MG CAP PO SCH (09:36)
[2021-08-09] MEDS: Zinc Sulfate 220 MG CAP PO SCH (09:36)
[2021-08-09] MEDS: Cholecalciferol (Vitamin D3) 400 UNITS TAB PO SCH (09:36)
[2021-08-09] MEDS: Senokot S 8.6-50 MG TAB PO SCH (09:36)
[2021-08-09] MEDS: Aspirin 81 mg Enteric Coated Tablet PO SCH (09:37)
[2021-08-09] MEDS: Dexamethasone 10 MG/ML VIAL SLOW IVP SCH (09:38)
[2021-08-09] MEDS: Lantus 1000 UNITS/10 ML VIAL SC SCH (09:39)
[2021-08-09] MEDS: NIFEdipine XL 30 MG TAB PO SCH ×2 (09:44→21:01)
[2021-08-09] MEDS: Guaifenesin DM 100-10/5 ML UDCUP PO PRN (14:49)
[2021-08-09] MEDS: Heparin 5,000 UNITS/ML VIAL SC SCH ×2 (14:51→22:19)
[2021-08-09] MEDS ORDERED: Albuterol 200 PUFF (6.7GM INHALER) INH PRN (16:12)
[2021-08-09] MEDS: Sodium Chloride 0.9% 1,000 ML IV SCH (16:18)
[2021-08-09 16:19] LABS: Anion Gap 21 mmol/L (10-20); BUN (Urea Nitrogen) 63 mg/dL (8.4-25.7); Calc. Creatinine Clearance 25 mL/min (70-130); Calcium 7.7 mg/dL (7.8-10.44); Carbon Dioxide 14 mmol/L (23-31); Chloride 94 mmol/L (98-107); Glucose 275 mg/dL (83-110); Potassium 3.7 mmol/L (3.5-5.1); Sodium 125 mmol/L (136-145)
[2021-08-09] MEDS ORDERED: Vancomycin HCl 1 GM in Admixture Fee 1 EACH IVPB SCH (16:30)
[2021-08-09] MEDS ORDERED: VANCOMYCIN 2 GRAM/400 ML BAG 2 GM in Premix Bag 1 BAG IVPB SCH (16:30)
[2021-08-09] MEDS: hydrALAZINE 20 MG/ML VIAL SLOW IVP PRN (16:38)
[2021-08-09] MEDS: Albuterol 200 PUFF (6.7GM INHALER) INH SCH ×2 (17:37→22:19)
[2021-08-09] MEDS: Sodium Bicarbonate Tab 325 MG TAB PO SCH (21:01)
[2021-08-09] MEDS: Insulin Regular 300 UNITS/3 ML VIAL SC PRN (21:16)
[2021-08-09] MEDS: Melatonin 3 MG TAB PO PRN (22:27)
[2021-08-09 22:28] LABS: Bilirubin Negative (Negative); Blood, Urine 2+ (Negative); Glucose, Urine (Dipstick) 50 mg/dL (Negative); Ketone, Urine Trace mg/dL (Negative); Leukocyte Negative Leu/uL (Negative); Nitrite Negative (Negative); Protein, Urine (Dipstick) 50 mg/dL (Neg-Trace); RBC/HPF Greater than 50 HPF (0-3); Specific Gravity, Urine 1.021 (1.002-1.036); Squamous Epithelial None Seen HPF (0-3); Urobilinogen Normal mg/dL (Less than 2)
[2021-08-09 22:29] LABS: Bacteria/HPF 1+ HPF (None Seen); Clarity Cloudy (Clear)
[2021-08-10] MEDS: Senokot S 8.6-50 MG TAB PO SCH ×3 (00:09→23:30)
[2021-08-10] MEDS: Heparin 5,000 UNITS/ML VIAL SC SCH ×3 (05:30→22:29)
[2021-08-10] MEDS: Sodium Chloride 0.9% 1,000 ML IV SCH (05:31)
[2021-08-10] MEDS: Guaifenesin DM 100-10/5 ML UDCUP PO PRN ×2 (05:34→10:24)
[2021-08-10 05:38] LABS: Hemoglobin 12.6 g/dL (14.0-18.0); Mean Corpuscular HGB CONC 32.6 g/dL (32.0-36.0); Mean Corpuscular Hemoglobin 29.4 pg (27.0-31.0); Mean Platelet Volume 8.9 fL (7.4-10.4); Platelet Count 273 thou/uL (130-400); RBC Distribution Width 11.8 % (11.5-14.5); White Blood Cell (WBC) Count 10.9 thou/uL (4.8-10.8)
[2021-08-10 05:39] LABS: Anion Gap 19 mmol/L (10-20); BUN (Urea Nitrogen) 58 mg/dL (8.4-25.7); BUN/Creatinine Ratio 21.72; Calc. Creatinine Clearance 31 mL/min (70-130); Calcium 7.5 mg/dL (7.8-10.44); Carbon Dioxide 15 mmol/L (23-31); Chloride 95 mmol/L (98-107); Glucose 205 mg/dL (83-110); Magnesium 2.3 mg/dL (1.6-2.6); Phosphorus 4.5 mg/dL (2.3-4.7); Potassium 3.6 mmol/L (3.5-5.1); Sodium 125 mmol/L (136-145)
[2021-08-10] MEDS: Insulin Regular 300 UNITS/3 ML VIAL SC PRN ×3 (06:28→15:26)
[2021-08-10 08:20] LABS: Band 6 % (5-11); Lymphocytes 14 % (21-51); MDiff Complete? YES; Monocytes 2 % (0-10); Neutrophil 78 % (42-75)
[2021-08-10] MEDS ORDERED: Potassium Chloride 20 MEQ TAB PO SCH (10:00)
[2021-08-10] MEDS ORDERED: Sodium Bicarbonate 150 MEQ in Dextrose 5% in Water 1,000 ML IV SCH (10:00)
[2021-08-10] MEDS: NIFEdipine XL 30 MG TAB PO SCH ×2 (10:14→22:28)
[2021-08-10] MEDS: Tamsulosin HCl 0.4 MG CAP PO SCH (10:14)
[2021-08-10] MEDS: Aspirin 81 mg Enteric Coated Tablet PO SCH (10:15)
[2021-08-10] MEDS: Zinc Sulfate 220 MG CAP PO SCH (10:15)
[2021-08-10] MEDS: Ascorbic Acid 500 mg Chewable Tablet PO SCH (10:15)
[2021-08-10] MEDS: Cholecalciferol (Vitamin D3) 400 UNITS TAB PO SCH (10:15)
[2021-08-10] MEDS: Sodium Bicarbonate Tab 325 MG TAB PO SCH ×2 (10:15→22:29)
[2021-08-10] MEDS: Dexamethasone 10 MG/ML VIAL SLOW IVP SCH (10:16)
[2021-08-10] MEDS: Lantus 1000 UNITS/10 ML VIAL SC SCH (10:21)
[2021-08-10] MEDS: Albuterol 200 PUFF (6.7GM INHALER) INH SCH ×5 (10:48→22:38)
[2021-08-10] MEDS: hydrALAZINE 20 MG/ML VIAL SLOW IVP PRN (15:13)
[2021-08-10 17:51] LABS: Vancomycin, Random 11.2 ug/mL (See Comment)
[2021-08-10] MEDS ORDERED: Furosemide 20 MG/2 ML VIAL SLOW IVP SCH (19:30)
[2021-08-10] MEDS ORDERED: Sodium Bicarbonate Tab 325 MG TAB PO SCH (21:00)
[2021-08-10] MEDS ORDERED: Vancomycin 1 GM in Premix Bag 1 BAG IVPB SCH (21:30)
[2021-08-10] MEDS: Cefepime 1 GM in Sodium Chloride 0.9% 100 ML IVPB SCH (22:28)
[2021-08-10] MEDS: guaiFENesin/DM ER PO SCH (22:38)
[2021-08-10] MEDS: Melatonin 3 MG TAB PO PRN (22:41)
[2021-08-11] MEDS: Albuterol 200 PUFF (6.7GM INHALER) INH SCH ×7 (00:14→19:46)
[2021-08-11] MEDS: Insulin Regular 300 UNITS/3 ML VIAL SC PRN ×3 (02:19→21:39)
[2021-08-11 05:29] LABS: Hemoglobin 12.3 g/dL (14.0-18.0); Mean Corpuscular HGB CONC 33.7 g/dL (32.0-36.0); Mean Corpuscular Hemoglobin 30.3 pg (27.0-31.0); Mean Corpuscular Volume 89.9 fL (78.0-98.0); Mean Platelet Volume 8.7 fL (7.4-10.4); Platelet Count 331 thou/uL (130-400); RBC Distribution Width 11.8 % (11.5-14.5); Red Blood Cell (RBC) Count 4.05 mill/uL (4.70-6.10); White Blood Cell (WBC) Count 13.3 thou/uL (4.8-10.8)
[2021-08-11 06:03] LABS: Albumin 2.9 g/dL (3.4-4.8); Anion Gap 13 mmol/L (10-20); BUN (Urea Nitrogen) 42 mg/dL (8.4-25.7); BUN/Creatinine Ratio 26.42; Calc. Creatinine Clearance 52 mL/min (70-130); Calcium 7.7 mg/dL (7.8-10.44); Carbon Dioxide 23 mmol/L (23-31); Chloride 98 mmol/L (98-107); Glucose 143 mg/dL (83-110); Phosphorus 2.8 mg/dL (2.3-4.7); Potassium 3.7 mmol/L (3.5-5.1); Sodium 130 mmol/L (136-145)
[2021-08-11 06:05] LABS: Magnesium 2.4 mg/dL (1.6-2.6); Phosphorus 2.7 mg/dL (2.3-4.7)
[2021-08-11 06:14] LABS: Band 6 % (5-11); Lymphocytes 20 % (21-51); MDiff Complete? YES; Monocytes 2 % (0-10); Myelocyte 4 % (0-0); Neutrophil 68 % (42-75)
[2021-08-11] MEDS: Heparin 5,000 UNITS/ML VIAL SC SCH ×2 (06:26→14:47)
[2021-08-11] MEDS: Lantus 1000 UNITS/10 ML VIAL SC SCH (09:08)
[2021-08-11] MEDS: Sodium Bicarbonate Tab 325 MG TAB PO SCH (09:09)
[2021-08-11] MEDS: Ascorbic Acid 500 mg Chewable Tablet PO SCH (09:10)
[2021-08-11] MEDS: Aspirin 81 mg Enteric Coated Tablet PO SCH (09:10)
[2021-08-11] MEDS: Zinc Sulfate 220 MG CAP PO SCH (09:11)
[2021-08-11] MEDS: Tamsulosin HCl 0.4 MG CAP PO SCH (09:11)
[2021-08-11] MEDS: Benzonatate 100 MG CAP PO PRN (09:11)
[2021-08-11] MEDS: guaiFENesin/DM ER PO SCH ×2 (09:11→19:44)
[2021-08-11] MEDS: Cholecalciferol (Vitamin D3) 400 UNITS TAB PO SCH (09:11)
[2021-08-11] MEDS: Multivit, Therapeutic 1 TAB PO SCH (09:12)
[2021-08-11] MEDS: Guaifenesin DM 100-10/5 ML UDCUP PO PRN ×2 (09:12→14:47)
[2021-08-11] MEDS: NIFEdipine XL 30 MG TAB PO SCH ×2 (09:13→19:44)
[2021-08-11] MEDS: Cefepime 1 GM in Sodium Chloride 0.9% 100 ML IVPB SCH ×2 (09:13→19:44)
[2021-08-11] MEDS: Dexamethasone 10 MG/ML VIAL SLOW IVP SCH (09:14)
[2021-08-11] MEDS: Senokot S 8.6-50 MG TAB PO SCH ×2 (09:19→19:45)
[2021-08-11] MEDS ORDERED: hydrALAZINE 25 MG TAB PO PRN (17:37)
[2021-08-11] MEDS: Enoxaparin Sodium 40 MG/0.4 ML SYRINGE SC SCH (19:44)
[2021-08-11] MEDS: Melatonin 3 MG TAB PO PRN (19:47)
[2021-08-12] MEDS: Albuterol 200 PUFF (6.7GM INHALER) INH SCH ×7 (04:33→23:23)
[2021-08-12 06:18] LABS: Hemoglobin 12.6 g/dL (14.0-18.0); Mean Corpuscular HGB CONC 32.8 g/dL (32.0-36.0); Mean Corpuscular Hemoglobin 29.8 pg (27.0-31.0); Mean Corpuscular Volume 90.9 fL (78.0-98.0); Mean Platelet Volume 8.3 fL (7.4-10.4); Platelet Count 334 thou/uL (130-400); RBC Distribution Width 11.9 % (11.5-14.5); Red Blood Cell (RBC) Count 4.23 mill/uL (4.70-6.10); White Blood Cell (WBC) Count 14.9 thou/uL (4.8-10.8)
[2021-08-12 06:30] LABS: Albumin 2.9 g/dL (3.4-4.8); Anion Gap 10 mmol/L (10-20); BUN (Urea Nitrogen) 37 mg/dL (8.4-25.7); BUN/Creatinine Ratio 29.84; Calc. Creatinine Clearance 67 mL/min (70-130); Calcium 8.1 mg/dL (7.8-10.44); Carbon Dioxide 26 mmol/L (23-31); Chloride 99 mmol/L (98-107); Glucose 61 mg/dL (83-110); Phosphorus 3.2 mg/dL (2.3-4.7); Potassium 4.2 mmol/L (3.5-5.1); Sodium 131 mmol/L (136-145)
[2021-08-12 08:35] LABS: Band 5 % (5-11); Eosinophils 3 % (0-10); Lymphocytes 18 % (21-51); MDiff Complete? YES; Metamyelocyte 1 % (0-0); Monocytes 7 % (0-10); Myelocyte 3 % (0-0); Neutrophil 63 % (42-75); Platelet Morphology Comment Appears Adequate; RBC Morphology Normal
[2021-08-12] MEDS: Cefepime 1 GM in Sodium Chloride 0.9% 100 ML IVPB SCH ×2 (09:12→20:37)
[2021-08-12] MEDS: Benzonatate 100 MG CAP PO PRN (09:14)
[2021-08-12] MEDS: Zinc Sulfate 220 MG CAP PO SCH (09:14)
[2021-08-12] MEDS: Ascorbic Acid 500 mg Chewable Tablet PO SCH (09:15)
[2021-08-12] MEDS: Aspirin 81 mg Enteric Coated Tablet PO SCH (09:15)
[2021-08-12] MEDS: Tamsulosin HCl 0.4 MG CAP PO SCH (09:15)
[2021-08-12] MEDS: Cholecalciferol (Vitamin D3) 400 UNITS TAB PO SCH (09:15)
[2021-08-12] MEDS ORDERED: NIFEdipine XL 60 MG TAB PO SCH (09:15)
[2021-08-12] MEDS: Multivit, Therapeutic 1 TAB PO SCH (09:15)
[2021-08-12] MEDS: Lantus 1000 UNITS/10 ML VIAL SC SCH (09:16)
[2021-08-12] MEDS: Dexamethasone 10 MG/ML VIAL SLOW IVP SCH ×2 (09:17→20:41)
[2021-08-12] MEDS: Senokot S 8.6-50 MG TAB PO SCH ×2 (09:18→20:39)
[2021-08-12] MEDS: guaiFENesin/DM ER PO SCH ×2 (09:19→20:41)
[2021-08-12] MEDS: Guaifenesin DM 100-10/5 ML UDCUP PO PRN (09:22)
[2021-08-12] MEDS: hydrALAZINE 20 MG/ML VIAL SLOW IVP PRN ×2 (11:47→23:53)
[2021-08-12] MEDS: Insulin Regular 300 UNITS/3 ML VIAL SC PRN ×3 (11:49→20:38)
[2021-08-12] MEDS: NIFEdipine XL 30 MG TAB PO SCH (15:12)
[2021-08-12] MEDS: hydrALAZINE 25 MG TAB PO SCH (20:39)
[2021-08-12] MEDS: Enoxaparin Sodium 40 MG/0.4 ML SYRINGE SC SCH (20:40)
[2021-08-12] MEDS ORDERED: NIFEdipine XL 30 MG TAB PO SCH (21:00)
[2021-08-13] MEDS: Albuterol 200 PUFF (6.7GM INHALER) INH SCH ×6 (02:40→20:27)
[2021-08-13 06:05] LABS: Hemoglobin 12.4 g/dL (14.0-18.0); Mean Corpuscular HGB CONC 32.6 g/dL (32.0-36.0); Mean Corpuscular Hemoglobin 29.8 pg (27.0-31.0); Mean Corpuscular Volume 91.4 fL (78.0-98.0); Mean Platelet Volume 8.3 fL (7.4-10.4); Platelet Count 333 thou/uL (130-400); RBC Distribution Width 11.9 % (11.5-14.5); Red Blood Cell (RBC) Count 4.18 mill/uL (4.70-6.10); White Blood Cell (WBC) Count 12.9 thou/uL (4.8-10.8)
[2021-08-13] MEDS: hydrALAZINE 25 MG TAB PO SCH ×3 (06:11→20:25)
[2021-08-13 06:24] LABS: Anion Gap 13 mmol/L (10-20); BUN (Urea Nitrogen) 31 mg/dL (8.4-25.7); Calc. Creatinine Clearance 79 mL/min (70-130); Calcium 8.1 mg/dL (7.8-10.44); Carbon Dioxide 23 mmol/L (23-31); Chloride 98 mmol/L (98-107); Glucose 108 mg/dL (83-110); Potassium 4.6 mmol/L (3.5-5.1); Sodium 129 mmol/L (136-145)
[2021-08-13 06:55] LABS: Band 2 % (5-11); Lymphocytes 8 % (21-51); MDiff Complete? YES; Metamyelocyte 1 % (0-0); Monocytes 4 % (0-10); Myelocyte 5 % (0-0); Neutrophil 80 % (42-75)
[2021-08-13] MEDS ORDERED: NIFEdipine XL 60 MG TAB PO SCH (09:00)
[2021-08-13] MEDS: Benzonatate 100 MG CAP PO PRN (10:20)
[2021-08-13] MEDS: Ascorbic Acid 500 mg Chewable Tablet PO SCH (10:21)
[2021-08-13] MEDS: Aspirin 81 mg Enteric Coated Tablet PO SCH (10:21)
[2021-08-13] MEDS: Multivit, Therapeutic 1 TAB PO SCH (10:21)
[2021-08-13] MEDS: Cholecalciferol (Vitamin D3) 400 UNITS TAB PO SCH (10:22)
[2021-08-13] MEDS: Zinc Sulfate 220 MG CAP PO SCH (10:22)
[2021-08-13] MEDS: Tamsulosin HCl 0.4 MG CAP PO SCH (10:22)
[2021-08-13] MEDS: Guaifenesin DM 100-10/5 ML UDCUP PO PRN (10:22)
[2021-08-13] MEDS: guaiFENesin/DM ER PO SCH ×2 (10:22→20:37)
[2021-08-13] MEDS: Dexamethasone 10 MG/ML VIAL SLOW IVP SCH ×2 (10:28→20:27)
[2021-08-13] MEDS: Cefepime 1 GM in Sodium Chloride 0.9% 100 ML IVPB SCH ×2 (10:29→20:28)
[2021-08-13] MEDS: Enoxaparin Sodium 40 MG/0.4 ML SYRINGE SC SCH ×2 (10:31→20:25)
[2021-08-13] MEDS: Lantus 1000 UNITS/10 ML VIAL SC SCH (10:31)
[2021-08-13] MEDS: Senokot S 8.6-50 MG TAB PO SCH ×2 (10:38→20:25)
[2021-08-13] MEDS: Insulin Regular 300 UNITS/3 ML VIAL SC PRN ×3 (10:41→20:35)
[2021-08-13] MEDS ORDERED: NIFEdipine XL 30 MG TAB PO SCH (18:30)
[2021-08-14] MEDS: Albuterol 200 PUFF (6.7GM INHALER) INH SCH ×6 (03:36→22:35)
[2021-08-14 05:59] LABS: Hemoglobin 13.1 g/dL (14.0-18.0); Mean Corpuscular Hemoglobin 30.1 pg (27.0-31.0); Mean Corpuscular Volume 91.3 fL (78.0-98.0); Platelet Count 382 thou/uL (130-400); RBC Distribution Width 11.9 % (11.5-14.5); Red Blood Cell (RBC) Count 4.34 mill/uL (4.70-6.10); White Blood Cell (WBC) Count 16.6 thou/uL (4.8-10.8)
[2021-08-14 06:18] LABS: Anion Gap 13 mmol/L (10-20); BUN (Urea Nitrogen) 29 mg/dL (8.4-25.7); Calc. Creatinine Clearance 75 mL/min (70-130); Calcium 8.4 mg/dL (7.8-10.44); Carbon Dioxide 20 mmol/L (23-31); Chloride 99 mmol/L (98-107); Glucose 151 mg/dL (83-110); Potassium 5.1 mmol/L (3.5-5.1); Sodium 127 mmol/L (136-145)
[2021-08-14] MEDS: Insulin Regular 300 UNITS/3 ML VIAL SC PRN ×4 (06:22→21:21)
[2021-08-14 06:32] LABS: Band 5 % (5-11); Lymphocytes 12 % (21-51); MDiff Complete? YES; Monocytes 7 % (0-10); Neutrophil 76 % (42-75)
[2021-08-14] MEDS: Multivit, Therapeutic 1 TAB PO SCH (09:08)
[2021-08-14] MEDS: hydrALAZINE 25 MG TAB PO SCH ×3 (09:08→21:19)
[2021-08-14] MEDS: Aspirin 81 mg Enteric Coated Tablet PO SCH (09:09)
[2021-08-14] MEDS: Zinc Sulfate 220 MG CAP PO SCH (09:09)
[2021-08-14] MEDS: Tamsulosin HCl 0.4 MG CAP PO SCH (09:10)
[2021-08-14] MEDS: NIFEdipine XL 90 MG TAB PO SCH (09:10)
[2021-08-14] MEDS: Benzonatate 100 MG CAP PO PRN (09:10)
[2021-08-14] MEDS: Cholecalciferol (Vitamin D3) 400 UNITS TAB PO SCH (09:10)
[2021-08-14] MEDS: Ascorbic Acid 500 mg Chewable Tablet PO SCH (09:11)
[2021-08-14] MEDS: Guaifenesin DM 100-10/5 ML UDCUP PO PRN (09:11)
[2021-08-14] MEDS: Enoxaparin Sodium 40 MG/0.4 ML SYRINGE SC SCH ×2 (09:11→21:16)
[2021-08-14] MEDS: Cefepime 1 GM in Sodium Chloride 0.9% 100 ML IVPB SCH (09:12)
[2021-08-14] MEDS: Dexamethasone 10 MG/ML VIAL SLOW IVP SCH ×2 (09:12→21:17)
[2021-08-14] MEDS: Lantus 1000 UNITS/10 ML VIAL SC SCH (09:13)
[2021-08-14] MEDS: Senokot S 8.6-50 MG TAB PO SCH ×2 (09:36→21:21)
[2021-08-14] MEDS: guaiFENesin/DM ER PO SCH ×2 (09:41→21:18)
[2021-08-14] MEDS: hydrALAZINE 20 MG/ML VIAL SLOW IVP PRN (13:46)
[2021-08-14] MEDS ORDERED: Polyethylene Glycol 3350 17 GM Packet PO SCH (16:45)
[2021-08-14] MEDS ORDERED: Senokot S 8.6-50 MG TAB PO SCH (21:00)
[2021-08-15] MEDS: Albuterol 200 PUFF (6.7GM INHALER) INH SCH ×6 (03:05→23:03)
[2021-08-15] MEDS: Guaifenesin DM 100-10/5 ML UDCUP PO PRN (03:16)
[2021-08-15 06:37] LABS: Anion Gap 10 mmol/L (10-20); BUN (Urea Nitrogen) 30 mg/dL (8.4-25.7); CRP (Inflammatory) Less than 0.50 mg/dL (= or < 0.5); Calc. Creatinine Clearance 82 mL/min (70-130); Calcium 8.2 mg/dL (7.8-10.44); Carbon Dioxide 25 mmol/L (23-31); Chloride 98 mmol/L (98-107); Glucose 97 mg/dL (83-110); Potassium 4.9 mmol/L (3.5-5.1); Sodium 128 mmol/L (136-145)
[2021-08-15 06:43] LABS: Band 2 % (5-11); Hemoglobin 12.5 g/dL (14.0-18.0); Hypochromia SLIGHT = 6-15 cells (100X) (0-5/hpf); Lymphocytes 11 % (21-51); MDiff Complete? YES; Mean Corpuscular HGB CONC 34.2 g/dL (32.0-36.0); Mean Corpuscular Hemoglobin 31.6 pg (27.0-31.0); Mean Corpuscular Volume 92.5 fL (78.0-98.0); Mean Platelet Volume 7.9 fL (7.4-10.4); Monocytes 17 % (0-10); Neutrophil 70 % (42-75); Platelet Count 343 thou/uL (130-400); Platelet Morphology Comment Appears Adequate; RBC Distribution Width 12.2 % (11.5-14.5); Red Blood Cell (RBC) Count 3.94 mill/uL (4.70-6.10); White Blood Cell (WBC) Count 13.3 thou/uL (4.8-10.8)
[2021-08-15] MEDS: Dexamethasone 10 MG/ML VIAL SLOW IVP SCH ×2 (10:33→19:52)
[2021-08-15] MEDS: NIFEdipine XL 90 MG TAB PO SCH (10:36)
[2021-08-15] MEDS: Polyethylene Glycol 3350 17 GM Packet PO SCH (10:36)
[2021-08-15] MEDS: Enoxaparin Sodium 40 MG/0.4 ML SYRINGE SC SCH ×2 (10:36→19:51)
[2021-08-15] MEDS: hydrALAZINE 25 MG TAB PO SCH ×3 (10:37→19:51)
[2021-08-15] MEDS: Cholecalciferol (Vitamin D3) 400 UNITS TAB PO SCH (10:37)
[2021-08-15] MEDS: Zinc Sulfate 220 MG CAP PO SCH (10:37)
[2021-08-15] MEDS: Tamsulosin HCl 0.4 MG CAP PO SCH (10:38)
[2021-08-15] MEDS: Senokot S 8.6-50 MG TAB PO SCH ×2 (10:38→19:51)
[2021-08-15] MEDS: guaiFENesin/DM ER PO SCH ×2 (10:38→19:51)
[2021-08-15] MEDS: Aspirin 81 mg Enteric Coated Tablet PO SCH (10:38)
[2021-08-15] MEDS: Ascorbic Acid 500 mg Chewable Tablet PO SCH (10:39)
[2021-08-15] MEDS: Multivit, Therapeutic 1 TAB PO SCH (10:39)
[2021-08-15] MEDS: Lantus 1000 UNITS/10 ML VIAL SC SCH (10:40)
[2021-08-15] MEDS: Insulin Regular 300 UNITS/3 ML VIAL SC PRN ×3 (14:05→19:55)
[2021-08-16] MEDS: hydrALAZINE 20 MG/ML VIAL SLOW IVP PRN ×3 (00:37→12:58)
[2021-08-16] MEDS: Melatonin 3 MG TAB PO PRN ×2 (00:38→20:52)
[2021-08-16] MEDS: Albuterol 200 PUFF (6.7GM INHALER) INH SCH ×6 (02:42→20:47)
[2021-08-16 05:39] LABS: Band 3 % (5-11); Hemoglobin 11.4 g/dL (14.0-18.0); Lymphocytes 11 % (21-51); MDiff Complete? YES; Mean Corpuscular HGB CONC 33.8 g/dL (32.0-36.0); Mean Corpuscular Hemoglobin 31.2 pg (27.0-31.0); Mean Corpuscular Volume 92.4 fL (78.0-98.0); Mean Platelet Volume 7.6 fL (7.4-10.4); Monocytes 7 % (0-10); Myelocyte 3 % (0-0); Neutrophil 75 % (42-75); Platelet Count 304 thou/uL (130-400); Platelet Morphology Comment Appears Adequate; RBC Distribution Width 12.1 % (11.5-14.5); RBC Morphology Normal; Reactive Lymphocytes 1 % (0-10); Red Blood Cell (RBC) Count 3.65 mill/uL (4.70-6.10); White Blood Cell (WBC) Count 10.4 thou/uL (4.8-10.8)
[2021-08-16 05:41] LABS: Anion Gap 9 mmol/L (10-20); BUN (Urea Nitrogen) 29 mg/dL (8.4-25.7); Calc. Creatinine Clearance 77 mL/min (70-130); Calcium 8.1 mg/dL (7.8-10.44); Carbon Dioxide 26 mmol/L (23-31); Chloride 100 mmol/L (98-107); Glucose 129 mg/dL (83-110); Potassium 5.1 mmol/L (3.5-5.1); Sodium 130 mmol/L (136-145)
[2021-08-16] MEDS: Polyethylene Glycol 3350 17 GM Packet PO SCH (10:19)
[2021-08-16] MEDS: Aspirin 81 mg Enteric Coated Tablet PO SCH (10:20)
[2021-08-16] MEDS: Ascorbic Acid 500 mg Chewable Tablet PO SCH (10:20)
[2021-08-16] MEDS: Cholecalciferol (Vitamin D3) 400 UNITS TAB PO SCH (10:20)
[2021-08-16] MEDS: Dexamethasone 10 MG/ML VIAL SLOW IVP SCH ×2 (10:21→20:44)
[2021-08-16] MEDS: Enoxaparin Sodium 40 MG/0.4 ML SYRINGE SC SCH ×2 (10:22→20:45)
[2021-08-16] MEDS: Guaifenesin DM 100-10/5 ML UDCUP PO PRN (10:23)
[2021-08-16] MEDS: Zinc Sulfate 220 MG CAP PO SCH (10:25)
[2021-08-16] MEDS: Tamsulosin HCl 0.4 MG CAP PO SCH (10:25)
[2021-08-16] MEDS: Senokot S 8.6-50 MG TAB PO SCH ×2 (10:26→20:47)
[2021-08-16] MEDS: NIFEdipine XL 90 MG TAB PO SCH (10:26)
[2021-08-16] MEDS: Multivit, Therapeutic 1 TAB PO SCH (10:27)
[2021-08-16] MEDS: hydrALAZINE 25 MG TAB PO SCH ×3 (10:28→20:46)
[2021-08-16] MEDS: guaiFENesin/DM ER PO SCH ×2 (10:29→20:46)
[2021-08-16] MEDS: Lantus 1000 UNITS/10 ML VIAL SC SCH (10:29)
[2021-08-16] MEDS ORDERED: Magnesium Citrate 300 ML BOT PO SCH (16:00)
[2021-08-16] MEDS ORDERED: Bisacodyl 10 MG SUPP PR PRN (16:52)
[2021-08-16] MEDS: Insulin Regular 300 UNITS/3 ML VIAL SC PRN ×2 (17:17→21:33)
[2021-08-17] MEDS: hydrALAZINE 20 MG/ML VIAL SLOW IVP PRN (00:46)
[2021-08-17] MEDS: Albuterol 200 PUFF (6.7GM INHALER) INH SCH ×3 (02:34→11:00)
[2021-08-17] MEDS ORDERED: Labetalol HCl 100 MG/20 ML VIAL SLOW IVP SCH (02:36)
[2021-08-17] MEDS: hydrALAZINE 25 MG TAB PO SCH (07:58)
[2021-08-17] MEDS: Aspirin 81 mg Enteric Coated Tablet PO SCH (07:58)
[2021-08-17] MEDS: Multivit, Therapeutic 1 TAB PO SCH (07:59)
[2021-08-17] MEDS: NIFEdipine XL 90 MG TAB PO SCH (07:59)
[2021-08-17] MEDS: Cholecalciferol (Vitamin D3) 400 UNITS TAB PO SCH (07:59)
[2021-08-17] MEDS: Tamsulosin HCl 0.4 MG CAP PO SCH (07:59)
[2021-08-17] MEDS: Zinc Sulfate 220 MG CAP PO SCH (07:59)
[2021-08-17] MEDS: Ascorbic Acid 500 mg Chewable Tablet PO SCH (07:59)
[2021-08-17] MEDS: Lantus 1000 UNITS/10 ML VIAL SC SCH (08:00)
[2021-08-17] MEDS: Polyethylene Glycol 3350 17 GM Packet PO SCH (08:08)
[2021-08-17] MEDS: Senokot S 8.6-50 MG TAB PO SCH (08:08)
[2021-08-17] MEDS ORDERED: Amlodipine 5 MG TAB PO SCH (09:45)
[2021-08-17] MEDS: guaiFENesin/DM ER PO SCH (09:47)
[2021-08-17] MEDS: Enoxaparin Sodium 40 MG/0.4 ML SYRINGE SC SCH (09:47)
[2021-08-17] MEDS: Dexamethasone 10 MG/ML VIAL SLOW IVP SCH (09:47)
[2021-08-17 12:39] VITALS: BP 153/67; TEMP 97.9
== END 2021-08-17 12:25 | disposition home or self-care (01) | DRG 871 ==
LOC: INTOOBSV 23:27 → 2SW 23:27 → OBSVTOIN 08-08 14:21
PROVIDERS: ADMIT Internal Medicine; ATTEND Family Medicine
PROC: 8E0ZXY6 Isolation (ICD-10-PCS; principal; 2021-08-08)
DX: A41.89 Other specified sepsis (principal); U07.1 COVID-19; J12.82 Pneumonia due to coronavirus disease 2019; J96.01 Acute respiratory failure with hypoxia; N17.0 Acute kidney failure with tubular necrosis; I21.A1 Myocardial infarction type 2; E87.2 Acidosis; E87.1 Hypo-osmolality and hyponatremia; R65.20 Severe sepsis without septic shock; A41.1 Sepsis due to other specified staphylococcus; I25.10 Atherosclerotic heart disease of native coronary artery without angina pectoris; N18.30 Chronic kidney disease, stage 3 unspecified; E11.65 Type 2 diabetes mellitus with hyperglycemia; E86.0 Dehydration; I12.9 Hypertensive chronic kidney disease with stage 1 through stage 4 chronic kidney disease, or unspecified chronic kidney disease; E11.22 Type 2 diabetes mellitus with diabetic chronic kidney disease; I16.0 Hypertensive urgency; N40.0 Benign prostatic hyperplasia without lower urinary tract symptoms; E11.649 Type 2 diabetes mellitus with hypoglycemia without coma; Z90.89 Acquired absence of other organs; Z98.890 Other specified postprocedural states; Z87.891 Personal history of nicotine dependence; Z79.4 Long term (current) use of insulin
CPT/HCPCS: 36415; 36416; 71045; 71046; 76770; 80048; 80053; 80061; 80069; 80202; 81001; 82728; 83036; 83735; 83930; 83935; 84100; 84300; 84443; 84484; 85025; 85379; 86140; 93005; 93010; 96372; 96374; 96375; G0378; J0360; J0456; J0692; J0696; J1100; J1644; J1650; J1815; J1940; J2405; J3370; J3490; J7050; J7070

== ENCOUNTER 2022-12-11 20:30 | Inpatient (IN) | payer MEDICARE, BC ==
[2022-12-12] MEDS ORDERED: Acetaminophen 325 MG TAB PO PRN (04:13)
[2022-12-12] MEDS ORDERED: HumaLOG 300 UNITS/3 ML VIAL SC PRN (04:16)
[2022-12-12] MEDS ORDERED: Dextrose 5% in Water 1,000 ML IV PRN (04:16)
[2022-12-12] MEDS ORDERED: Dextrose 50% Abboject 50 ML SYRINGE SLOW IVP PRN (04:16)
[2022-12-12 04:29] VITALS: BMI 28.7
[2022-12-12 04:52] LABS: #Basophils 0.1 thou/uL (0.0-0.2); #Eosinphils 0.1 thou/uL (0.0-0.7); #Lymphocytes 1.1 thou/uL (1.20-3.40); #Monocytes 0.8 thou/uL (0.11-0.59); %Basophils 0.8 % (0.0-1.0); %Eosinophils 1.8 % (0.0-10.0); %Lymphocytes 13.9 % (21.0-51.0); %Neutrophils 73.5 % (42.0-75.0); Hemoglobin 12.9 g/dL (14.0-18.0); Mean Corpuscular HGB CONC 34.5 g/dL (32.0-36.0); Mean Corpuscular Volume 89.8 fl (78.0-98.0); Mean Platelet Volume 7.6 fL (7.4-10.4); Platelet Count 190 10x3/uL (130-400); RBC Distribution Width 11.8 % (11.5-14.5); Red Blood Cell (RBC) Count 4.16 mill/uL (4.70-6.10); White Blood Cell (WBC) Count 8.1 10x3/uL (4.8-10.8)
[2022-12-12 05:08] LABS: Anion Gap 14 mmol/L (10-20); BUN (Urea Nitrogen) 15 mg/dL (8.4-25.7); Calc. Creatinine Clearance 58 mL/min (70-130); Calcium 9.1 mg/dL (7.8-10.44); Carbon Dioxide 20 mmol/L (23-31); Chloride 102 mmol/L (98-107); Estimated GFR 58; Glucose 129 mg/dL (83-110); Potassium 3.4 mmol/L (3.5-5.1); Sodium 133 mmol/L (136-145)
[2022-12-12] MEDS ORDERED: Ketorolac Tromethamine 30 MG/ML VIAL IVP SCH (06:15)
[2022-12-12] MEDS ORDERED: Potassium Chloride 10 MEQ in Premix Bag 1 BAG IVPB SCH ×2 (06:30→08:00)
[2022-12-12] MEDS ORDERED: Electrolyte Replacement Protocol 1 EACH FS SCH (07:30)
[2022-12-12] MEDS ORDERED: Potassium Chloride 30 MEQ in Sodium Chloride 0.9% 250 ML 250 ML IVPB SCH (08:00)
[2022-12-12] MEDS: hydrALAZINE 20 MG/ML VIAL SLOW IVP PRN ×3 (08:34→20:20)
[2022-12-12] MEDS: Metoprolol Tartrate 25 MG TAB PO SCH (18:16)
[2022-12-12 19:14] LABS: Anion Gap 14 mmol/L (10-20); BUN (Urea Nitrogen) 16 mg/dL (8.4-25.7); Calc. Creatinine Clearance 54 mL/min (70-130); Calcium 9.1 mg/dL (7.8-10.44); Carbon Dioxide 21 mmol/L (23-31); Chloride 100 mmol/L (98-107); Estimated GFR 53; Glucose 175 mg/dL (83-110); Magnesium 1.9 mg/dL (1.6-2.6); Potassium 3.9 mmol/L (3.5-5.1); Sodium 131 mmol/L (136-145)
[2022-12-12] MEDS ORDERED: Magnesium 2 GM/50 ML(in water) 2 GM in Premix Bag 1 BAG IVPB SCH (20:00)
[2022-12-12] MEDS: Acetaminophen 500 MG TAB PO PRN (20:05)
[2022-12-12] MEDS: GUAIFENESIN SF SOLN 200 MG/10 ML UDCUP PO PRN (20:06)
[2022-12-12] MEDS ORDERED: GUAIFENESIN SF SOLN 200 MG/10 ML UDCUP PO SCH (21:15)
[2022-12-13 04:54] LABS: #Eosinphils 0.2 thou/uL (0.0-0.7); #Lymphocytes 1.2 thou/uL (1.20-3.40); #Monocytes 1.4 thou/uL (0.11-0.59); #Neutrophils 10.6 thou/uL (1.40-6.50); %Basophils 0.3 % (0.0-1.0); %Eosinophils 1.6 % (0.0-10.0); %Lymphocytes 8.8 % (21.0-51.0); %Monocytes 10.7 % (0.0-10.0); %Neutrophils 78.5 % (42.0-75.0); Hemoglobin 12.9 g/dL (14.0-18.0); Mean Corpuscular HGB CONC 34.7 g/dL (32.0-36.0); Mean Corpuscular Hemoglobin 31.2 pg (27.0-31.0); Mean Corpuscular Volume 89.7 fl (78.0-98.0); Mean Platelet Volume 7.7 fL (7.4-10.4); Platelet Count 201 10x3/uL (130-400); RBC Distribution Width 11.7 % (11.5-14.5); Red Blood Cell (RBC) Count 4.14 mill/uL (4.70-6.10); White Blood Cell (WBC) Count 13.4 10x3/uL (4.8-10.8)
[2022-12-13 05:26] LABS: Anion Gap 13 mmol/L (10-20); BUN (Urea Nitrogen) 12 mg/dL (8.4-25.7); Calc. Creatinine Clearance 66 mL/min (70-130); Calcium 9.1 mg/dL (7.8-10.44); Carbon Dioxide 20 mmol/L (23-31); Chloride 102 mmol/L (98-107); Estimated GFR 67; Glucose 142 mg/dL (83-110); Sodium 131 mmol/L (136-145)
[2022-12-13] MEDS: GUAIFENESIN SF SOLN 200 MG/10 ML UDCUP PO PRN (06:08)
[2022-12-13] MEDS: hydrALAZINE 20 MG/ML VIAL SLOW IVP PRN ×3 (06:08→14:48)
[2022-12-13] MEDS: Acetaminophen 500 MG TAB PO PRN ×3 (06:17→14:47)
[2022-12-13] MEDS: Metoprolol Tartrate 25 MG TAB PO SCH ×2 (08:39→22:07)
[2022-12-13] MEDS: Aspirin 81 mg Enteric Coated Tablet PO SCH (08:39)
[2022-12-13] MEDS: Tamsulosin HCl 0.4 MG CAP PO SCH (08:39)
[2022-12-13] MEDS: cloNIDine 0.1 MG TAB PO PRN (13:38)
[2022-12-13] MEDS: Ondansetron PF 4 MG/2 ML Vial IVP PRN (20:08)
[2022-12-14] MEDS: hydrALAZINE 20 MG/ML VIAL SLOW IVP PRN ×4 (03:51→20:14)
[2022-12-14] MEDS: Tamsulosin HCl 0.4 MG CAP PO SCH (09:25)
[2022-12-14] MEDS: Metoprolol Tartrate 25 MG TAB PO SCH ×2 (09:25→20:15)
[2022-12-14] MEDS: Pantoprazole 40 MG VIAL IVP SCH ×2 (09:25→20:15)
[2022-12-14] MEDS: Sodium Chloride 0.9% 1,000 ML IV SCH (09:57)
[2022-12-14] MEDS ORDERED: Piperacillin/Tazobactam 3.375 GM in Sodium Chloride 0.9% 100 ML IVPB SCH ×4 (13:45→14:00)
[2022-12-14] MEDS ORDERED: Ketorolac Tromethamine 30 MG/ML VIAL IVP SCH (19:45)
[2022-12-14] MEDS: Piperacillin/Tazobactam 3.375 GM in Sodium Chloride 0.9% 100 ML IVPB SCH (21:37)
[2022-12-14] MEDS: Metoprolol Tartrate 5 MG/5 ML VIAL IVP SCH (23:30)
[2022-12-15] MEDS: hydrALAZINE 20 MG/ML VIAL SLOW IVP PRN ×6 (00:52→21:41)
[2022-12-15] MEDS: Piperacillin/Tazobactam 3.375 GM in Sodium Chloride 0.9% 100 ML IVPB SCH ×3 (05:50→21:33)
[2022-12-15] MEDS: Metoprolol Tartrate 5 MG/5 ML VIAL IVP SCH ×2 (08:13→19:47)
[2022-12-15] MEDS: Aspirin 81 mg Enteric Coated Tablet PO SCH (08:13)
[2022-12-15] MEDS: Pantoprazole 40 MG VIAL IVP SCH ×2 (08:13→19:45)
[2022-12-15] MEDS: Tamsulosin HCl 0.4 MG CAP PO SCH (08:13)
[2022-12-15] MEDS: Metoprolol Tartrate 25 MG TAB PO SCH ×2 (08:13→19:51)
[2022-12-15] MEDS ORDERED: Iopamidol-370 76% 500 ML 1 ML ONE (08:44)
[2022-12-15 08:59] LABS: Hemoglobin 13.4 g/dL (14.0-18.0); Mean Corpuscular HGB CONC 34.3 g/dL (32.0-36.0); Mean Corpuscular Hemoglobin 30.8 pg (27.0-31.0); Mean Platelet Volume 7.6 fL (7.4-10.4); Platelet Count 188 10x3/uL (130-400); RBC Distribution Width 11.8 % (11.5-14.5); Red Blood Cell (RBC) Count 4.34 mill/uL (4.70-6.10); White Blood Cell (WBC) Count 12.6 10x3/uL (4.8-10.8)
[2022-12-15 09:14] LABS: ALT (SGPT) 8 U/L (8-55); AST (SGOT) 15 U/L (5-34); Albumin 3.8 g/dL (3.4-4.8); Alkaline Phosphatase 63 U/L (40-110); Anion Gap 12 mmol/L (10-20); BUN (Urea Nitrogen) 14 mg/dL (8.4-25.7); Bilirubin, Total 0.9 mg/dL (0.2-1.2); Calc. Creatinine Clearance 58 mL/min (70-130); Calcium 8.7 mg/dL (7.8-10.44); Carbon Dioxide 21 mmol/L (23-31); Chloride 98 mmol/L (98-107); Estimated GFR 58; Globulin 2.3 g/dL (2.4-3.5); Glucose 151 mg/dL (83-110); Protein, Total 6.1 g/dL (5.8-8.1); Sodium 127 mmol/L (136-145)
[2022-12-15] MEDS ORDERED: CEFAZOLIN 2 GM VIAL ONE (09:57)
[2022-12-15] MEDS ORDERED: Lidocaine 1% PF 5 ML VIAL ONE (09:58)
[2022-12-15] MEDS ORDERED: PROPOFOL 200 MG/20 ML VIAL ONE (09:58)
[2022-12-15] MEDS ORDERED: Sodium Chloride 0.9% 0 ML ONE (09:58)
[2022-12-15] MEDS ORDERED: Fentanyl 100 MCG/2 ML VIAL ONE (10:29)
[2022-12-15] MEDS ORDERED: Ondansetron HCl/PF 4 MG/2 ML Vial IVP PRN (10:53)
[2022-12-15] MEDS ORDERED: Promethazine HCl 25 MG/ML VIAL IM PRN (10:53)
[2022-12-15] MEDS: Sodium Chloride 0.9% 1,000 ML IV SCH ×2 (12:12→13:34)
[2022-12-15] MEDS: Ondansetron PF 4 MG/2 ML Vial IVP PRN (18:00)
[2022-12-16] MEDS: Sodium Chloride 0.9% 1,000 ML IV SCH ×2 (01:16→18:36)
[2022-12-16] MEDS: Piperacillin/Tazobactam 3.375 GM in Sodium Chloride 0.9% 100 ML IVPB SCH (04:56)
[2022-12-16] MEDS: hydrALAZINE 20 MG/ML VIAL SLOW IVP PRN ×2 (04:57→06:02)
[2022-12-16 05:50] LABS: Hemoglobin 12.8 g/dL (14.0-18.0); Mean Corpuscular HGB CONC 33.5 g/dL (32.0-36.0); Mean Corpuscular Hemoglobin 30.4 pg (27.0-31.0); Mean Corpuscular Volume 90.6 fl (78.0-98.0); Mean Platelet Volume 7.8 fL (7.4-10.4); Platelet Count 189 10x3/uL (130-400); RBC Distribution Width 11.8 % (11.5-14.5); White Blood Cell (WBC) Count 9.6 10x3/uL (4.8-10.8)
[2022-12-16 06:15] LABS: ALT (SGPT) Less than 7 U/L (8-55); AST (SGOT) 9 U/L (5-34); Albumin 3.7 g/dL (3.4-4.8); Alkaline Phosphatase 55 U/L (40-110); Anion Gap 12 mmol/L (10-20); BUN (Urea Nitrogen) 12 mg/dL (8.4-25.7); Bilirubin, Total 0.8 mg/dL (0.2-1.2); Calc. Creatinine Clearance 62 mL/min (70-130); Calcium 8.6 mg/dL (7.8-10.44); Carbon Dioxide 22 mmol/L (23-31); Chloride 102 mmol/L (98-107); Estimated GFR 63; Globulin 2.3 g/dL (2.4-3.5); Glucose 129 mg/dL (83-110); Potassium 3.6 mmol/L (3.5-5.1); Sodium 132 mmol/L (136-145)
[2022-12-16] MEDS ORDERED: Ketorolac Tromethamine 30 MG/ML VIAL IVP SCH (06:30)
[2022-12-16] MEDS ORDERED: Labetalol HCl 100 MG/20 ML VIAL SLOW IVP SCH (07:00)
[2022-12-16] MEDS: Pantoprazole 40 MG VIAL IVP SCH ×2 (08:42→20:56)
[2022-12-16] MEDS: Tamsulosin HCl 0.4 MG CAP PO SCH (08:45)
[2022-12-16] MEDS: Metoprolol Tartrate 25 MG TAB PO SCH (08:45)
[2022-12-16] MEDS: Metoprolol Tartrate 5 MG/5 ML VIAL IVP SCH (09:41)
[2022-12-16] MEDS ORDERED: hydrALAZINE 20 MG/ML VIAL SLOW IVP SCH (12:00)
[2022-12-16] MEDS ORDERED: Amlodipine 10 MG TAB PO SCH (13:00)
[2022-12-16] MEDS: HumaLOG 300 UNITS/3 ML VIAL SC PRN (13:40)
[2022-12-16] MEDS: hydrALAZINE 25 MG TAB PO SCH ×2 (16:02→20:56)
[2022-12-16] MEDS: cloNIDine 0.1 MG TAB PO PRN (18:35)
[2022-12-16] MEDS ORDERED: cloNIDine 0.1 MG TAB PO PRN (18:38)
[2022-12-16] MEDS: NIFEdipine XL 30 MG TAB PO SCH ×2 (20:57→21:09)
[2022-12-16] MEDS: Lisinopril 20 MG TAB PO SCH (20:57)
[2022-12-16] MEDS: Acetaminophen 500 MG TAB PO PRN (21:00)
[2022-12-16] MEDS ORDERED: Heparin 5,000 UNITS/ML VIAL SC SCH (21:00)
[2022-12-17] MEDS: Acetaminophen 500 MG TAB PO PRN ×3 (01:58→15:03)
[2022-12-17 04:08] LABS: Hemoglobin 12.2 g/dL (14.0-18.0); Mean Corpuscular HGB CONC 33.9 g/dL (32.0-36.0); Mean Corpuscular Hemoglobin 30.9 pg (27.0-31.0); Mean Corpuscular Volume 91.1 fl (78.0-98.0); Mean Platelet Volume 7.4 fL (7.4-10.4); Platelet Count 206 10x3/uL (130-400); RBC Distribution Width 11.6 % (11.5-14.5); Red Blood Cell (RBC) Count 3.96 mill/uL (4.70-6.10); White Blood Cell (WBC) Count 8.7 10x3/uL (4.8-10.8)
[2022-12-17] MEDS: hydrALAZINE 20 MG/ML VIAL SLOW IVP PRN ×2 (04:27→06:23)
[2022-12-17 04:39] LABS: ALT (SGPT) 8 U/L (8-55); AST (SGOT) 10 U/L (5-34); Albumin 3.5 g/dL (3.4-4.8); Alkaline Phosphatase 50 U/L (40-110); Anion Gap 13 mmol/L (10-20); BUN (Urea Nitrogen) 14 mg/dL (8.4-25.7); Bilirubin, Total 0.5 mg/dL (0.2-1.2); Calc. Creatinine Clearance 65 mL/min (70-130); Calcium 8.5 mg/dL (7.8-10.44); Carbon Dioxide 21 mmol/L (23-31); Chloride 103 mmol/L (98-107); Estimated GFR 67; Globulin 2.3 g/dL (2.4-3.5); Glucose 142 mg/dL (83-110); Potassium 3.4 mmol/L (3.5-5.1); Protein, Total 5.8 g/dL (5.8-8.1); Sodium 134 mmol/L (136-145)
[2022-12-17] MEDS: hydrALAZINE 25 MG TAB PO SCH ×2 (07:44→15:03)
[2022-12-17] MEDS: Tamsulosin HCl 0.4 MG CAP PO SCH (07:44)
[2022-12-17] MEDS: Aspirin 81 mg Enteric Coated Tablet PO SCH (07:45)
[2022-12-17] MEDS: Lisinopril 20 MG TAB PO SCH (07:45)
[2022-12-17] MEDS: Pantoprazole 40 MG VIAL IVP SCH (07:46)
[2022-12-17] MEDS ORDERED: Potassium Chloride 20 MEQ TAB PO SCH (08:00)
[2022-12-17] MEDS ORDERED: Amlodipine 10 MG TAB PO SCH (09:00)
[2022-12-17] MEDS: NIFEdipine XL 30 MG TAB PO SCH (09:35)
[2022-12-17] MEDS: Sodium Chloride 0.9% 1,000 ML IV SCH (13:09)
[2022-12-17] MEDS: HumaLOG 300 UNITS/3 ML VIAL SC PRN (13:17)
[2022-12-17 16:47] VITALS: BP 170/78; TEMP 97.2
== END 2022-12-17 17:00 | disposition home or self-care (01) | DRG 155 ==
LOC: 2NO 12-12 03:37 → OBSVTOIN 12-12 04:13
PROVIDERS: ADMIT Internal Medicine; ATTEND Internal Medicine
PROC: 0DH63UZ Insertion of Feeding Device into Stomach, Percutaneous Approach (ICD-10-PCS; principal; 2022-12-15)
DX: J38.00 Paralysis of vocal cords and larynx, unspecified (principal); E87.1 Hypo-osmolality and hyponatremia; I47.20 Ventricular tachycardia, unspecified; I25.110 Atherosclerotic heart disease of native coronary artery with unstable angina pectoris; N17.9 Acute kidney failure, unspecified; I12.9 Hypertensive chronic kidney disease with stage 1 through stage 4 chronic kidney disease, or unspecified chronic kidney disease; N18.30 Chronic kidney disease, stage 3 unspecified; E78.5 Hyperlipidemia, unspecified; E11.22 Type 2 diabetes mellitus with diabetic chronic kidney disease; D63.1 Anemia in chronic kidney disease; N40.0 Benign prostatic hyperplasia without lower urinary tract symptoms; R13.12 Dysphagia, oropharyngeal phase; I16.0 Hypertensive urgency; E87.6 Hypokalemia; Z79.4 Long term (current) use of insulin; Z79.82 Long term (current) use of aspirin; Z79.899 Other long term (current) drug therapy; Z95.1 Presence of aortocoronary bypass graft; Z90.09 Acquired absence of other part of head and neck; Z98.890 Other specified postprocedural states; Z87.891 Personal history of nicotine dependence; Z78.1 Physical restraint status
CPT/HCPCS: 36415; 36416; 70450; 70551; 71045; 71260; 74230; 80048; 80053; 83735; 85025; 85027; 93306; C9113; J0360; J1815; J1885; J2405; J2543; J2704; J3010; J3475; J3480; J3490; J7050; Q9967; U0003; U0005

== ENCOUNTER 2023-01-13 07:20 | Day surgery (SDC) | payer MEDICARE, BC ==
[2023-01-11 13:07] VITALS: BMI 31.0
[2023-01-13 08:29] LABS: Hemoglobin 12.2 g/dL (14.0-18.0); Mean Corpuscular HGB CONC 34.7 g/dL (32.0-36.0); Mean Corpuscular Hemoglobin 31.6 pg (27.0-31.0); Mean Corpuscular Volume 91.1 fl (78.0-98.0); Mean Platelet Volume 7.6 fL (7.4-10.4); Platelet Count 253 10x3/uL (130-400); RBC Distribution Width 11.8 % (11.5-14.5); Red Blood Cell (RBC) Count 3.88 mill/uL (4.70-6.10)
[2023-01-13 08:46] LABS: Anion Gap 12 mmol/L (10-20); BUN (Urea Nitrogen) 39 mg/dL (8.4-25.7); Calc. Creatinine Clearance 44 mL/min (70-130); Calcium 9.3 mg/dL (7.8-10.44); Carbon Dioxide 25 mmol/L (23-31); Chloride 98 mmol/L (98-107); Estimated GFR 38; Glucose 188 mg/dL (83-110); Potassium 4.4 mmol/L (3.5-5.1); Sodium 131 mmol/L (136-145)
[2023-01-13] MEDS ORDERED: fentaNYL PF 100 MCG/2 ML SYRINGE ONE (08:55)
[2023-01-13] MEDS ORDERED: Dexamethasone 20 MG/5 ML VIAL ONE (09:57)
[2023-01-13] MEDS ORDERED: PHENYLEPHRINE-NS 100 MCG/ML 10 ML SYRINGE ONE (09:57)
[2023-01-13] MEDS ORDERED: Ondansetron PF 4 MG/2 ML Vial ONE (09:57)
[2023-01-13] MEDS ORDERED: PROPOFOL 200 MG/20 ML VIAL ONE (09:57)
== END 2023-01-13 11:55 | disposition home or self-care (01) ==
LOC: SDC 07:20
PROVIDERS: ATTEND Otolaryngology Plastic Surgery within the Head & Neck
PROC: 3E0F8GC Introduction of Other Therapeutic Substance into Respiratory Tract, Via Natural or Artificial Opening Endoscopic (ICD-10-PCS; principal; 2023-01-13)
DX: J38.01 Paralysis of vocal cords and larynx, unilateral (principal); R13.10 Dysphagia, unspecified; E11.9 Type 2 diabetes mellitus without complications; M19.90 Unspecified osteoarthritis, unspecified site; G89.29 Other chronic pain; M54.9 Dorsalgia, unspecified; I10 Essential (primary) hypertension; Z87.891 Personal history of nicotine dependence; Z79.4 Long term (current) use of insulin; Z79.82 Long term (current) use of aspirin; Z79.899 Other long term (current) drug therapy; Z95.1 Presence of aortocoronary bypass graft; Z98.1 Arthrodesis status
CPT/HCPCS: 36416; 80048; 85027; C1776; J1100; J2405; J2704

== ENCOUNTER 2023-08-01 21:08 | Observation (INO) | payer MEDICARE, BC ==
[2023-08-01 22:28] LABS: #Basophils 0.1 thou/uL (0.0-0.2); #Eosinphils 0.2 thou/uL (0.0-0.7); #Monocytes 0.7 thou/uL (0.11-0.59); #Neutrophils 5.2 thou/uL (1.40-6.50); %Eosinophils 2.6 % (0.0-10.0); %Monocytes 7.8 % (0.0-10.0); %Neutrophils 55.4 % (42.0-75.0); Hematocrit 35.3 % (42.0-52.0); Hemoglobin 12.4 g/dL (14.0-18.0); Mean Corpuscular HGB CONC 35.1 g/dL (32.0-36.0); Mean Corpuscular Volume 88.3 fl (78.0-98.0); Mean Platelet Volume 10.2 fL (7.4-10.4); Platelet Count 203 10x3/uL (130-400); RBC Distribution Width 13.5 % (11.5-14.5); White Blood Cell (WBC) Count 9.4 10x3/uL (4.8-10.8)
[2023-08-01 22:49] LABS: Anion Gap 15 mmol/L (10-20); BUN (Urea Nitrogen) 23 mg/dL (8.4-25.7); Calc. Creatinine Clearance 0 mL/min (70-130); Carbon Dioxide 22 mmol/L (23-31); Chloride 106 mmol/L (98-107); Estimated GFR 39; Glucose 124 mg/dL (83-110); Potassium 3.9 mmol/L (3.5-5.1); Sodium 139 mmol/L (136-145)
[2023-08-01 22:50] LABS: ALT (SGPT) 7 U/L (8-55); AST (SGOT) 11 U/L (5-34); Albumin 4.5 g/dL (3.4-4.8); Alkaline Phosphatase 82 U/L (40-110); Bilirubin, Total 0.5 mg/dL (0.2-1.2); Calcium 9.3 mg/dL (7.8-10.44); Globulin 2.6 g/dL (2.4-3.5); Protein, Total 7.1 g/dL (5.8-8.1)
[2023-08-01 22:53] LABS: Troponin I 0.014 ng/mL (< 0.028)
[2023-08-01] MEDS ORDERED: hydrALAZINE 20 MG/ML VIAL ONE (22:59)
[2023-08-02] MEDS ORDERED: Calcium Carbonate 500 MG ChewTAB PO PRN (02:13)
[2023-08-02] MEDS ORDERED: Ondansetron ODT 4 MG TAB PO PRN (02:13)
[2023-08-02] MEDS ORDERED: Acetaminophen 325 MG TAB PO PRN (02:13)
[2023-08-02 02:47] VITALS: BMI 29.5
[2023-08-02 05:20] VITALS: BP 172/74; TEMP 97.7
[2023-08-02 05:32] LABS: Anion Gap 15 mmol/L (10-20); BUN (Urea Nitrogen) 23 mg/dL (8.4-25.7); Calc. Creatinine Clearance 48 mL/min (70-130); Calcium 9.1 mg/dL (7.8-10.44); Carbon Dioxide 22 mmol/L (23-31); Chloride 107 mmol/L (98-107); Estimated GFR 46; Glucose 121 mg/dL (83-110); Potassium 3.6 mmol/L (3.5-5.1); Sodium 140 mmol/L (136-145)
[2023-08-02 05:37] LABS: Troponin I 0.032 ng/mL (< 0.028)
[2023-08-02] MEDS ORDERED: Nitroglycerin 0.4 MG TAB (25 Tab Bottle) SL PRN (07:41)
[2023-08-02 08:20] LABS: Troponin I 0.032 ng/mL (< 0.028)
[2023-08-02] MEDS ORDERED: Regadenoson 0.4 MG/5 ML SYRINGE ONE (08:46)
[2023-08-02] MEDS ORDERED: Isosorbide Mononitrate 30 MG ER.TAB PO SCH (09:00)
[2023-08-02] MEDS ORDERED: Famotidine 20 MG TAB PO SCH (21:00)
== END 2023-08-02 18:11 | disposition home or self-care (01) ==
LOC: ERS 21:08 → 2NO 08-02 00:23
PROVIDERS: ADMIT Student in an Organized Health Care Education/Training Program; ATTEND Student in an Organized Health Care Education/Training Program
DX: R07.89 Other chest pain (principal); I25.10 Atherosclerotic heart disease of native coronary artery without angina pectoris; E78.5 Hyperlipidemia, unspecified; I12.9 Hypertensive chronic kidney disease with stage 1 through stage 4 chronic kidney disease, or unspecified chronic kidney disease; N18.9 Chronic kidney disease, unspecified; D63.1 Anemia in chronic kidney disease; E11.22 Type 2 diabetes mellitus with diabetic chronic kidney disease; Z79.4 Long term (current) use of insulin; Z79.82 Long term (current) use of aspirin; Z79.899 Other long term (current) drug therapy
CPT/HCPCS: 71045; 78452; 80048; 80053; 84484 ×3; 85025; 93005; 93017; A9500; G0378; J0360; J2785; 36415; 96372; 96374; J1650